=== PATIENT | female | born 1930 | race Caucasian/White ===

== ENCOUNTER 2017-01-09 10:33 | Inpatient (IN) | payer OTHER ==
--- NOTE | 2017-01-09 10:42 | CPEKG ---
Heart Rate: 90 RR Interval: 667 P-R Interval: 140 QRSD Interval: 80 QT Interval: 380 QTC Interval: 465 P [place]: 27 QRS [place]: -30 T Wave [place]: 80 EKG Severity - ABNORMAL ECG - EKG Impression: SINUS RHYTHM EKG Impression: LEFT AXIS DEVIATION EKG Impression: CONSIDER ANTEROSEPTAL INFARCT Electronically Signed By: Myron Unger 09-Jan-2017 12:03:11
[2017-01-09 11:14] LABS: % IMMATURE GRANULYOCYTES 0.3 % (0.0-1.1); ABSOLUTE IMMATURE GRANULOCYTES 0.02 10^3/uL (0.00-0.10); ADD DIFF? NO; ADD MORPH? NO; ADD SCAN? NO; ATYPICAL LYMPHOCYTE FLAG 20 (0-99); FRAGMENT RBC FLAG 0 (0-99); HEMATOCRIT 47.3 % (38.0-47.0); HEMOGLOBIN 16.6 g/dL (12.6-16.3); LEFT SHIFT FLG 0 (0-99); LIPEMIA HEMOLYSIS FLAG 90 (0-99); MEAN CELL HEMOGLOBIN 31.9 pg (27.9-34.1); MEAN CELL HEMOGLOBIN CONCENTR. 35.1 g/dL (32.4-36.7); MEAN CELL VOLUME 90.8 fL (81.5-99.8); MEAN PLATELET VOLUME 10.3 fL (8.7-11.7); PLATELET CLUMPS FLAG 0 (0-99); PLATELET COUNT 201 10^3/uL (150-400); RED BLOOD CELL COUNT 5.21 10^6/uL (4.18-5.33); RED CELL DISTRIBUTION WIDTH 13.1 % (11.5-15.2)
[2017-01-09 11:22] LABS: ANION GAP 11 mEq/L (8-16); CALCIUM 9.6 mg/dL (8.5-10.4); CARBON DIOXIDE 23 mEq/l (22-31); CHLORIDE 96 mEq/L (97-110); CREATININE 0.7 mg/dL (0.6-1.0); GLOMERULAR FILTRATION RATE > 60; GLUCOSE 100 mg/dL (70-100); POTASSIUM 4.4 mEq/L (3.5-5.2); SODIUM 130 mEq/L (134-144)
[2017-01-09 11:38] LABS: INR 2.13 (0.83-1.16)
[2017-01-09] MEDS ORDERED: IOPAMIDOL (ISOVUE 370) 100 ML BTL IV ONE (11:53)
--- NOTE | 2017-01-09 12:57 | EDPHY ---
H & P Time Seen by Provider: 01/09/17 10:59 HPI/ROS: Chief complaint. Chest discomfort HPI. 86-year-old female presents emergency department with chest discomfort. She says she fell last night could not get up. Since this morning she has had fast heart rate. She complains of some anterior chest discomfort but not short of breath. She did not strike her head or lose consciousness. No injury from her fall. She is on Coumadin ROS Constitutional. no fever/chills, no weakness Eyes. no problems with vision ENT. no sore throat, no nasal drainage Cardiovascular. Chest pressure Respiratory. no shortness of breath, no cough Abdominal. no abdominal pain, no nausea/vomiting, no diarrhea . no problems urinating MS. no calf pain/swelling, no neck/back pain, no joint pain Skin. no rash Lymph. no swollen glands Neuro. no headache, no dizziness, no difficulty walking or with speech Past Medical/Surgical History: Past medical history seen for is CVA, hypertension, breast cancer, colon cancer , hypothyroidism, CHF, hysterectomy and appendectomy Social History: , nonsmoker, no alcohol Smoking Status: Never smoked Physical Exam: General Appearance: Alert well-developed female mild distress vital signs are stable Eyes: Pupils equal and round no pallor or injection. ENT, Mouth: Mucous membranes are moist. No bumps to the head. No hemotympanum or Obregon sign. No evidence for trauma Respiratory: There are no retractions, lungs are clear to auscultation. Cardiovascular: Regular rate and rhythm. Gastrointestinal: Abdomen is soft and nontender, no masses, bowel sounds normal. Neurological: Awake and alert, sensory and motor exams grossly normal. Skin: Warm and dry, no rashes. Musculoskeletal: Neck is supple nontender. Extremities symmetrical, full range of motion. Psychiatric: Patient is oriented X 3, there is no agitation. Constitutional: Initial Vital Signs Temperature (C) 36.8 C 01/09/17 10:43 Heart Rate 92 01/09/17 10:43 Respiratory Rate 18 01/09/17 10:43 Blood Pressure 169/104 H 01/09/17 10:43 O2 Sat (%) 96 01/09/17 10:43 O2 Delivery Mode Room Air Allergies/Adverse Reactions: No Known Allergies Allergy (Verified 11/30/14 03:06) Home Medications: Medication Instructions Recorded Ascorbic Acid [Vitamin C 500 mg 1,000 mg PO DAILY 01/31/15 (*)] Benazepril HCl [Lotensin (*)] 10 mg PO BID 01/31/15 Ca/D3/Mag/Zinc/Gonzalo/Jasper/Mgbor 1 each PO DAILY 01/31/15 [Caltrate 600+D3+Min Chew Tab] Docusate Sodium [Colace 100 MG (*)] 100 mg PO BID PRN 01/31/15 Vitamin B Complex [Super B-50 1 each PO DAILY 01/31/15 Complex] Warfarin Sodium [Coumadin 4MG (*)] 4 mg PO SUSA 01/31/15 Warfarin Sodium [Coumadin 4MG (*)] 8 mg PO MOTUWETHFR 01/31/15 cloNIDine HCL [Kapvay] 0.1 - 0.2 mg PO DAILY PRN 01/31/15 cycloSPORINE 0.05% [Restasis Opht 1 drop EACHEYE BID 01/31/15 Drops(*)] Acetaminophen [Tylenol 325mg (*)] 650 mg PO Q4 PRN #0 tab 02/03/15 Levothyroxine 08/29/16 Nexium 08/29/16 amLODIPine BESYLATE 08/29/16 Medical Decision Making - Diagnostics EKG Interpretation: EKG interpreted by me shows normal sinus rhythm with normal interval. There is left axis deviation. QRS is normal there is maybe slight anterior septal elevation but poor R-wave progression. Really no significant ST elevation or depression. No arrhythmia. The rate is 90 Imaging: Imaging Impressions Chest X-Ray 01/09/17 11:09 Impression: Early/impending CHF. Chest/Thorax CTA 01/09/17 11:45 Impression: 1. No evidence for pulmonary embolus. 2. Multiple 3 to 4 mm pulmonary noncalcified nodules bilaterally at the periphery. There is also nodular pleural thickening of the right minor fissure of 8-9 mm. This most likely benign. Consider follow-up CT in one year as clinically indicated. 3. Evidence of atherosclerotic disease in the coronary arteries. Evidence of atherosclerotic disease in the thoracic aorta with no evidence of aneurysmal dilatation or dissection. 4. Mild underlying bronchitis, likely chronic. 5. Moderate chronic anterior wedge compression deformity of T12. Results called and discussed with Myron Unger at 1240 hours 09 January 2017. Procedures: IV normal saline., monitor ED Course/Re-evaluation: Patient's D-dimer is elevated despite being on Coumadin. She has a chest CT which is negative for pulmonary embolus. Patient's troponin is elevated. The patient and I discussed recommendation for admission and further evaluation. She expresses understanding and agreement I consulted and discussed the case with Dr. Collazo, hospitalist, who agrees to the admission Differential Diagnosis: I considered pulmonary embolus, acute coronary syndrome, new - Data Points Laboratory Results: Laboratory Results 01/09/17 10:46 01/09/17 10:46 01/09/17 01/09/17 01/09/17 10:46 10:46 10:46 WBC 7.56 10^3/uL 10^3/uL (3.80-9.50) RBC 5.21 10^6/uL 10^6/uL (4.18-5.33) Hgb 16.6 g/dL H g/dL (12.6-16.3) Hct 47.3 % H % (38.0-47.0) MCV 90.8 fL fL (81.5-99.8) MCH 31.9 pg pg (27.9-34.1) MCHC 35.1 g/dL g/dL (32.4-36.7) RDW 13.1 % % (11.5-15.2) Plt Count 201 10^3/uL 10^3/uL (150-400) MPV 10.3 fL fL (8.7-11.7) Neut % (Auto) 71.1 % % (39.3-74.2) Lymph % (Auto) 15.5 % % (15.0-45.0) [place] % (Auto) 11.9 % % (4.5-13.0) Eos % (Auto) 0.9 % % (0.6-7.6) Baso % (Auto) 0.3 % % (0.3-1.7) Nucleat RBC Rel Count 0.0 % % (0.0-0.2) Absolute Neuts (auto) 5.38 10^3/uL 10^3/uL (1.70-6.50) Absolute Lymphs (auto) 1.17 10^3/uL 10^3/uL (1.00-3.00) Absolute Monos (auto) 0.90 10^3/uL H 10^3/uL (0.30-0.80) Absolute Eos (auto) 0.07 10^3/uL 10^3/uL (0.03-0.40) Absolute Basos (auto) 0.02 10^3/uL 10^3/uL (0.02-0.10) Absolute Nucleated RBC 0.00 10^3/uL 10^3/uL (0-0.01) Immature Gran % 0.3 % % (0.0-1.1) Immature Gran # 0.02 10^3/uL 10^3/uL (0.00-0.10) PT 24.0 SEC H SEC (12.0-15.0) INR 2.13 H (0.83-1.16) D-Dimer 1.43 ug/mLFEU H ug/mLFEU (0.00-0.50) Sodium 130 mEq/L L mEq/L (134-144) Potassium 4.4 mEq/L mEq/L (3.5-5.2) Chloride 96 mEq/L L mEq/L (97-110) Carbon Dioxide 23 mEq/l mEq/l (22-31) Anion Gap 11 mEq/L mEq/L (8-16) BUN 16 mg/dL mg/dL (7-23) Creatinine 0.7 mg/dL mg/dL (0.6-1.0) Estimated GFR > 60 Glucose 100 mg/dL mg/dL (70-100) Calcium 9.6 mg/dL mg/dL (8.5-10.4) Troponin I 1.050 ng/mL H ng/mL (0-0.034) NT-Pro-B Natriuret Pep 3400 pg/mL H pg/mL (0-450) Departure - Departure Disposition: [facility] Inpatient Acute Clinical Impression: Non-STEMI (non-ST elevated myocardial infarction) Condition: Fair Referrals: UNKNOWN,UNKNOWN [Other] - As per Instructions
[2017-01-09] MEDS ORDERED: ASPIRIN 81 MG CHEWABLE TAB PO ONE (13:04)
--- NOTE | 2017-01-09 13:34 | CPEKG ---
Heart Rate: 91 RR Interval: 659 P-R Interval: 144 QRSD Interval: 82 QT Interval: 372 QTC Interval: 458 P [place]: 13 QRS [place]: -37 T Wave [place]: 74 EKG Severity - ABNORMAL ECG - EKG Impression: SINUS RHYTHM EKG Impression: LEFT AXIS DEVIATION EKG Impression: ANTERIOR INFARCT, AGE INDETERMINATE Electronically Signed By: Myron Unger 09-Jan-2017 15:31:23
[2017-01-09] MEDS ORDERED: ONDANSETRON DISINTEGRATING 4 MG TAB PO PRN (13:48)
[2017-01-09] MEDS ORDERED: ONDANSETRON 4 MG/2 ML VIAL IVP PRN (13:48)
[2017-01-09] MEDS ORDERED: ACETAMINOPHEN 325 MG TAB PO PRN (13:48)
[2017-01-09] MEDS ORDERED: hydrALAZINE 10 MG TAB PO PRN (13:52)
[2017-01-09] MEDS ORDERED: PROPYLENE GLYCOL EACHEYE PRN (14:38)
[2017-01-09] MEDS ORDERED: PEG EACHEYE PRN (14:38)
--- NOTE | 2017-01-09 15:21 | ECHO ---
[id number] + + [address] : : [place] [address] : : [phone] + + Adult Echocardiographic Report + ----+ :Name: JERAD PALOMINOTeri Date: 01/09/2017 02:50 PM : : Hospital Admission Number: [id number] Location : ER: :: 1930 Gender: Female : :Age: 86 yrs Race: WH : :Reason For Study: NSTEMI : + ----+ MMode/2D Measurements \T\ Calculations IVSd: 0.92 cm LVIDd: 4.2 cm FS: 22.3 % MV Diam: 4.0 cm LVPWd: 1.0 cm LVIDs: 3.2 cm EDV(Teich): 77.3 ml ESV(Teich): 42.2 ml EF(Teich): 45.4 % LA dimension: LVOT diam: 1.9 cmLVLd ap4: 8.2 cm SV(MOD-sp4): 4.3 cm LVOT area: EDV(MOD-sp4): 24.0 ml 47.0 ml 2.8 cm2 LVLs ap4: 7.2 cm ESV(MOD-sp4): 23.0 ml EF(MOD-sp4): 51.1 % Normal Measurement Values: + + :LVIDd (3.5-5.7cm) IVSd (0.6-1.1cm) LVPWd (0.6-1.1cm) Aortic Root (2.0-3.7cm)Left Atrium (1.5-4.0cm): :LV Vol(d) (76-115ml) LV Vol(s) (29-48ml) Ejec Fraction (50-65%)PV Juan Carlos (0.6- 1.2m/s) TV Juan Carlos (0.4-1.0m/s) : :MV E Juan Carlos (0.8-1.0m/s)MV A Juan Carlos (0.3-1.0m/s)LVOT Juan Carlos (0.7-1.2m/s) Asc Ao Juan Carlos ( 0.9-1.8m/s) : + + Doppler Measurements \T\ Calculations MV V2 max: Ao V2 max: LV V1 max: MR max juan carlos: 108.0 cm/sec 353.0 cm/sec 100.0 cm/sec 570.0 cm/sec MV max P.7 mmHg Ao max PG: LV V1 max PG: MR max PG: MV V2 mean: 49.9 mmHg 4.0 mmHg 130.0 mmHg 68.1 cm/sec Ao mean PG: LV V1 mean PG: MV mean P.0 mmHg 28.5 mmHg 3.0 mmHg MV V2 VTI: 22.7 cm Ao V2 mean: LV V1 mean: MV area (1 diam): 244.5 cm/sec 78.4 cm/sec 12.6 cm2 Ao V2 VTI: 73.8 cmLV V1 VTI: 22.6 cm MVA(VTI): 2.8 cm2 ALYSSIA(I,D): 0.87 cm2 MV Flow area(1diam): ALYSSIA(V,D): 0.80 cm2 12.6 cm2 MR(RF 1 diam): SV(MV 1 diam): TR max juan carlos: RF(MV,LVOT) 10.8 % 285.3 ml 335.0 cm/sec (1diam): 0.78 SV(LVOT): 64.1 ml TR max P.9 mmHg RAP systole: 10.0 mmHg RVSP(TR): 54.9 mmHg Left Ventricle The left ventricle is normal in size. There is normal left ventricular wall thickness. Ejection Fraction = 55-60%. There are regional wall motion abnormalities as specified. Right Ventricle The right ventricle is normal in size and function. Atria The left atrium is mild to moderately dilated. Right atrial size is normal. The interatrial septum is intact with no evidence for an atrial septal defect. Mitral Valve Calcified mitral apparatus. There is no evidence of mitral valve prolapse. There is no mitral valve stenosis. There is moderate to severe mitral regurgitation. Tricuspid Valve Normal tricuspid valve. There is mild tricuspid regurgitation. Right ventricular systolic pressure is 55mmHg. There is Doppler evidence for mild pulmonary hypertension. Aortic Valve Moderate to severe AO calcification. Moderate to severe valvular aortic stenosis. AV max PG is 53mmHG. AV mean PG is 30mmHG. There is no aortic insufficiency. Pulmonic Valve The pulmonic valve is normal in structure and function. There is no pulmonic valvular regurgitation. Great Vessels The aortic root is normal size. Pericardium/Pleural There is no pericardial effusion. Conclusion A complete two-dimensional transthoracic echocardiogram was performed (2D, M-mode, Doppler and color flow Doppler). Ejection Fraction = 55-60%. The left atrium is mild to moderately dilated. Calcified mitral apparatus. There is moderate to severe mitral regurgitation. There is mild tricuspid regurgitation. Right ventricular systolic pressure is 55mmHg. There is Doppler evidence for mild pulmonary hypertension. Moderate to severe AO calcification. Moderate to severe valvular aortic stenosis. AV max PG is 53mmHG. AV mean PG is 30mmHG. Final Reading Physician: Sigrid Rao signed on 01/09/2017 03:19 PM Ordering Physician: Laurie Alonzo Performed By: Sarah Brooke RDCS
[2017-01-09] MEDS ORDERED: hydrALAZINE 20 MG/ML VIAL IVP PRN (15:27)
--- NOTE | 2017-01-09 15:38 | GHP ---
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 The patient says she was walking from the kitchen to her bedroom with 2 yogurts in her hand and then fell on her back because she was not using her walker. She denied any prodromal chest pain, shortness of breath, dizziness, lightheadedness, nausea or vomiting. She was unable to get up off the floor, thus called the EMS and was brought to the emergency room. After the fall, she stated she had a heavy, fast heart beat without radiation. She did not have any associated symptoms with this. She said this was the first time she has had this symptom. She denies headache. Upon my visit now, she states that she is still feeling that heavy heart beat. Patient lives alone. Her son is in the [facility]. REVIEW OF SYSTEMS: I have completed a 10-point review of systems. PAST MEDICAL HISTORY: 1. Stroke with residual severe carotid stenosis on chronic Coumadin. 2. Breast cancer. 3. History of colon cancer. 4. Hypertension. 5. Atrial fibrillation. 6. Esophageal stenosis. 7. Hyponatremia. 8. Hypothyroidism. 9. Spinal stenosis. PAST SURGICAL HISTORY: 1. Right mastectomy. 2. Hysterectomy. ALLERGIES: No known drug allergies. SOCIAL HISTORY: Lives alone. Denies alcohol, tobacco, or illicits. Her son is her MDPOA. She is a DNR. MEDICATIONS: 1. Coumadin 10 mg daily. 2. Systane eyedrops. 3. Flonase b.i.d. 4. Colace b.i.d. 5. Aspirin 325 mg daily. 6. Milk of mag p.r.n. 7. Lipitor 10 mg. 8. Levothyroxine 50 mcg. 9. Cyclosporin 1 drop b.i.d. 10. Clonidine 0.1 to 0.2 mg p.o. daily p.r.n. 11. Multivitamin. 12. Benazepril 10 twice daily. 13. Amlodipine 5 mg daily. PHYSICAL EXAMINATION: VITAL SIGNS: Blood pressure 169/104, heart rate 90s, temperature 36.8, respiration 18, 96% on room air. GENERAL: Patient is lying in bed, in no acute distress. HEENT: Hard of hearing. PERRLA. CV: Regular rate and rhythm with occasional extra beats. Soft systolic murmur. LUNGS: Clear to auscultation bilaterally. ABDOMEN: Soft, nontender, nondistended. Positive bowel sounds. : No Vance. No suprapubic tenderness. MUSCULOSKELETAL: Moving all 4 extremities. NEURO: 2 through 12 intact. PSYCH : Alert, slow to answer questions but does so appropriately. LABORATORY DATA: WBC 7, hemoglobin 16, hematocrit 47, platelets 201. INR is 2.1, PT is 24. D-dimer is 1.43. Sodium 130, potassium 4.4, chloride 96, carbon dioxide 23, BUN is 16, creatinine 0.7, glucose 100. Troponin 1.050. BNP is 3400. Chest x-ray personally reviewed by me, mild interstitial edema. EKG is personally reviewed by me. First EKG at 10:[address] depression in anterior leads. Repeat at 1330, reviewed by me, now with progressive ischemic changes of T-wave inversions in leads V2 through V4. ASSESSMENT AND PLAN: 1. Acute non-ST segment elevation myocardial infarction: Evidence of ischemia on EKG with an elevated troponin. I discussed the case with Dr. Grimes with cardiology and patient's son who is her MDPOA. Echo did not reveal wall motion abnormalities, rather severe . This is likely cause of elevated trop and EKG changes. Will check serial troponins and admit to PCU with telemetry. Cont home ASA, statin. I have discussed this plan with her son, Kai, who is MDPOA. 2. Severe : may warrant valve replacement. Caution with diuretics and IVFs as preload-dependent. 3. History of cerebrovascular accident with severe carotid stenosis: cont ASA, Coumadin. 4. Accelerated hypertension: Norvasc and PRN hydralazine 5. Mild volume overload: start low-dose Chlorthalidone tomorrow 6. Hypothyroidism. Continue levothyroxine. 7. History of colon cancer, status post resection. 8. History of breast cancer, status post mastectomy. 9.. Left hip pain: due to fall. c/o pain to me in ER. Check plain 10. [facility] fall: was not using walker at time of fall. PT/O 11. Diet: cardiac 12. DVT ppx: on coumadin Goals: I have spoken with her son, Kai, at length about her clinical disposition. He is flying here from [facility].He is MDPOA DNR Disposition: The patient warrants inpatient admission given acute non-ST segment elevation myocardial infarction warranting further cardiac evaluation. /[id number]/MODL MTDD
[2017-01-09] MEDS ORDERED: TEARS/DEXTRAN 70/HYPROMELLOSE 15 ML OPHT.BTL EACHEYE PRN (15:59)
[2017-01-09] MEDS ORDERED: WARFARIN SODIUM 5 MG TAB PO SCH (16:00)
[2017-01-09] MEDS ORDERED: HEPARIN/DEXTROSE 500 ML IV SCH (16:30)
[2017-01-09] MEDS: amLODIPine BESYLATE 5 MG TAB PO SCH (16:55)
--- NOTE | 2017-01-09 17:04 | GHP ---
[f rep st] HISTORY AND PHYSICAL DATE OF ADMISSION: 01/09/2017 CHIEF COMPLAINT: The patient had a fall with abnormal EKG and troponin. HISTORY OF PRESENT ILLNESS: This is an 86-year-old female who has no known history of coronary jack ry disease. She is somewhat hard of hearing, and her history is taken from herself and reading the chart. She apparently had a CVA with residual severe carotid stenosis. She is on chronic anticoagu lation. Last evening, apparently she was holding 2 yogurts and had a fall without any prodrome. To day, because of a pounding heart rate, she came to the emergency room, where her EKG showed nonspeci fic changes in V1 and V2. Troponin is 1.0. She denies any chest pain or other known coronary arter y disease. There is a mention of a history of atrial fibrillation, but no atrial fibrillation is kn own at this time. She is on Coumadin and, otherwise, now is seen resting comfortably. An echocardi ogram showed probable severe aortic stenosis with a valve area 0.7, moderate to severe mitral regurg itation, normal LV function without ischemic wall motion abnormality with mild concentric LVH. Appa rently, she takes her home pulse and blood pressures on a regular basis. Her son is in [facility], who has power of transactional attorney. At this point, she is resting comfortably. We will continue to control her hypertension tonight and we will place her on heparin drip. Discussions of further care will need to be made when her son is available regarding her cardiac status and whether or not she would be a candidate for surgical or transarterial valve replacement. We will also monitor for any arrhythmias , although it is normal sinus at this time. I tried to explain this to her, but we will need to exp freddy more fully when her son is here. REVIEW OF SYSTEMS: Apparently no GI or complaints. No shortness of breath. No PND or orthopnea . She lives at home and other than her fall, has been very stable. She has had falls in the past. PAST MEDICAL HISTORY: Past history includes stroke with severe carotid stenosis, on chronic Coumadi n. She has history of colon cancer, hypertension, atrial fibrillation, esophageal stenosis, spinal stenosis. ALLERGIES: No known drug allergies. SOCIAL HISTORY: She lives alone. Her son has medical power of transactional attorney. She is DNR. MEDICATIONS: At this time include Coumadin, Norvasc, p.r.n. clonidine, benazepril/hydrochlorothiazi de and Lipitor. PHYSICAL EXAMINATION: VITAL SIGNS: Blood pressure is elevated at 160/100. Heart rate is in the 90 s in sinus. GENERAL: She is hard of hearing, but seems to be alert and oriented. HEENT: She has some mild post stroke changes on her right face. Mouth and oropharynx moist. LUNGS: Clear. CARDI OVASCULAR: Regular rate and rhythm with a systolic murmur. Carotid bruit on the left side. ABDOME N: Soft, nontender. MUSCULOSKELETAL: No edema. Decreased pedal pulses. ASSESSMENT: 1. Fall, probably multifactorial. At this point, the patient has hypertension and has not been hav ing ongoing acute coronary syndrome symptomatology. She has complained of a pounding heart rate, al though her rate is 90, usually at 70. I suspect this is probably from her home medicine of clonidin e and amlodipine. At this point, echocardiogram did not show any ischemic wall motion abnormalities . For now, the big question is further workup of her valvular heart disease. I would like to hold her Coumadin and begin her on heparin. She has had at least 2 falls now in the last few months, whi ch once again would make coumadinization somewhat more risky, although she feels comfortable with th e drug that she is taking at this time. 2. Hypertension. It is, I suspect, under better control, but she seems to be more fixated on her h eart rate than blood pressure. 3. History of peripheral vascular disease, status post cerebrovascular accident and apparently resi dual carotid stenosis, although I did not find any reports of the specific stenotic gradient. 4. Possible arrhythmias. We will continue to monitor. 5. We will need to discuss more fully with her son and her, her wishes as to further workup. She i s DNR. Once again, she is now comfortable, stable, without ongoing symptomatology. Case is discuss ed with Dr. Alonzo. /[id number]/MODL
[2017-01-09] MEDS: ATORVASTATIN CALCIUM 10 MG TAB PO SCH (18:00)
[2017-01-09] MEDS: DOCUSATE SODIUM 100 MG CAP PO SCH (18:00)
[2017-01-09] MEDS: CALCIUM CARB W/VIT D 500 MG TAB PO SCH (18:30)
[2017-01-09] MEDS: CYCLOSPORINE 0.05% 1 EACH BOX EACHEYE SCH (20:44)
[2017-01-09] MEDS: FLUTICASONE NASAL 120 SPRAYS/16 GM MDI EACHNARE SCH (20:44)
[2017-01-09] MEDS: diphenhydrAMINE 25 MG CAP PO SCH (21:51)
[2017-01-10 04:07] LABS: INR 2.45 (0.83-1.16); PROTIME(PATIENT) 26.8 SEC (12.0-15.0)
[2017-01-10] MEDS: LEVOTHYROXINE 50 MCG TAB PO SCH (08:37)
[2017-01-10] MEDS: CHLORTHALIDONE 25 MG TAB PO SCH (08:38)
[2017-01-10] MEDS: DOCUSATE SODIUM 100 MG CAP PO SCH ×2 (08:38→18:00)
[2017-01-10] MEDS: PANTOPRAZOLE SODIUM 40 MG TAB PO SCH (08:39)
[2017-01-10] MEDS: ASPIRIN 325 MG TAB PO SCH (08:39)
[2017-01-10] MEDS: MULTIVITAMINS 1 EACH TAB PO SCH (08:39)
[2017-01-10] MEDS: CYCLOSPORINE 0.05% 1 EACH BOX EACHEYE SCH ×2 (08:40→20:42)
[2017-01-10] MEDS: amLODIPine BESYLATE 5 MG TAB PO SCH (08:40)
[2017-01-10] MEDS: FLUTICASONE NASAL 120 SPRAYS/16 GM MDI EACHNARE SCH ×2 (08:42→20:43)
[2017-01-10] MEDS: CALCIUM CARB W/VIT D 500 MG TAB PO SCH (08:45)
[2017-01-10] MEDS ORDERED: NON-FORMULARY NEW DRUG (Esomeprazole Mag Trihydrate [Nexium] 40 MG) PO SCH (09:00)
[2017-01-10] MEDS ORDERED: [UNRECOGNIZED DRUG - OTHER] PO SCH (09:00)
[2017-01-10] MEDS ORDERED: amLODIPine BESYLATE 5 MG TAB PO SCH (09:00)
--- NOTE | 2017-01-10 09:03 | SOAPPROG ---
KATIE Progress Note Assessment/Plan: Assessment: 1. vhd...mod/severe and MR..normal lvef withut rwma..no signifcant s/s of chf..pt son coming in to [facility]..need to discuss options..pt "wants to go home" without further testing at this point 2. htn..well controlled on current meds 3. abn trop..? cad or chf?vhd...no unstable cad symptoms now..pt not wanting "tests" Plan:1. continue med management and await son's return to further discuss options and plans 01/10/17 09:03 01/10/17 09:04 Subjective: pt feeling well without c/o Objective: Vital Signs Temp Pulse Resp BP Pulse Ox 36.8 C 69 17 100/81 H 96 01/10/17 08:00 01/10/17 08:00 01/10/17 08:00 01/10/17 08:00 01/10/17 08:00 01/09/17 01/10/17 01/11/17 05:59 05:59 05:59 Intake Total 506 Balance 506 PT 26.8 SEC (12.0-15.0) H 01/10/17 03:10 INR 2.45 (0.83-1.16) H 01/10/17 03:10 Physical Exam - Physical Exam Respiratory: lungs clear Cardiac/Chest: normal peripheral pulses, regular rate, rhythm, systolic murmur, No edema, No gallop ICD10 Worksheet Patient Problems: Problems Problem Status Onset Non-STEMI (non-ST elevated myocardial infarction) Acute Fall Acute Wrist fracture, left Acute
--- NOTE | 2017-01-10 13:41 | HOSPPROG ---
Hospitalist Progress Note Assessment/Plan: * severe aortic stenosis * awaiting son's arrival tomorrow to make any decisions. * Probably more likely a TAVR candidate * syncope * probably related to stenosis * elevated troponin * more likely related to severe aortic stenosis than active coronary disease * since she is already on Coumadin will discontinue heparin * atrial fibrillation * in sinus * history of severe carotid stenosis with stroke * Coumadin * Subjective: no new complaints. No chest pain or shortness of breath. Is able to ambulate Objective: Vital Signs Temp Pulse Resp BP Pulse Ox 36.8 C 69 17 100/81 H 96 01/10/17 08:00 01/10/17 08:00 01/10/17 08:00 01/10/17 08:00 01/10/17 08:00 01/09/17 01/10/17 01/11/17 05:59 05:59 05:59 Intake Total 506 Balance 506 PT 26.8 SEC (12.0-15.0) H 01/10/17 03:10 INR 2.45 (0.83-1.16) H 01/10/17 03:10 discussed with Cardiology tele personally viewed interpreted normal sinus rhythm ICD10 Worksheet Patient Problems: Problems Problem Status Onset Non-STEMI (non-ST elevated myocardial infarction) Acute Fall Acute Wrist fracture, left Acute
[2017-01-10] MEDS: ATORVASTATIN CALCIUM 10 MG TAB PO SCH (18:00)
[2017-01-10] MEDS: diphenhydrAMINE 25 MG CAP PO SCH (20:43)
[2017-01-11 04:54] LABS: % IMMATURE GRANULYOCYTES 0.2 % (0.0-1.1); ABSOLUTE IMMATURE GRANULOCYTES 0.01 10^3/uL (0.00-0.10); ADD DIFF? NO; ADD MORPH? NO; ADD SCAN? NO; ATYPICAL LYMPHOCYTE FLAG 0 (0-99); FRAGMENT RBC FLAG 0 (0-99); HEMATOCRIT 37.5 % (38.0-47.0); HEMOGLOBIN 12.9 g/dL (12.6-16.3); LEFT SHIFT FLG 0 (0-99); LIPEMIA HEMOLYSIS FLAG 90 (0-99); MEAN CELL HEMOGLOBIN 31.5 pg (27.9-34.1); MEAN CELL HEMOGLOBIN CONCENTR. 34.4 g/dL (32.4-36.7); MEAN CELL VOLUME 91.7 fL (81.5-99.8); MEAN PLATELET VOLUME 10.3 fL (8.7-11.7); PLATELET CLUMPS FLAG 0 (0-99); PLATELET COUNT 143 10^3/uL (150-400); RED BLOOD CELL COUNT 4.09 10^6/uL (4.18-5.33); RED CELL DISTRIBUTION WIDTH 13.2 % (11.5-15.2)
[2017-01-11 05:03] LABS: INR 1.71 (0.83-1.16); PROTIME(PATIENT) 20.1 SEC (12.0-15.0)
[2017-01-11] MEDS: LEVOTHYROXINE 50 MCG TAB PO SCH (05:03)
[2017-01-11 05:22] LABS: ANION GAP 4 mEq/L (8-16); CALCIUM 8.3 mg/dL (8.5-10.4); CARBON DIOXIDE 24 mEq/l (22-31); CHLORIDE 99 mEq/L (97-110); CREATININE 0.6 mg/dL (0.6-1.0); GLOMERULAR FILTRATION RATE > 60; GLUCOSE 83 mg/dL (70-100); POTASSIUM 4.4 mEq/L (3.5-5.2); SODIUM 127 mEq/L (134-144)
[2017-01-11 07:38] VITALS: TEMP 98.2
[2017-01-11] MEDS: FLUTICASONE NASAL 120 SPRAYS/16 GM MDI EACHNARE SCH (07:57)
[2017-01-11] MEDS: DOCUSATE SODIUM 100 MG CAP PO SCH (07:57)
[2017-01-11] MEDS: CALCIUM CARB W/VIT D 500 MG TAB PO SCH (07:57)
[2017-01-11] MEDS: CYCLOSPORINE 0.05% 1 EACH BOX EACHEYE SCH (07:57)
[2017-01-11] MEDS: CHLORTHALIDONE 25 MG TAB PO SCH (08:00)
[2017-01-11] MEDS: ASPIRIN 325 MG TAB PO SCH (08:00)
[2017-01-11] MEDS: PANTOPRAZOLE SODIUM 40 MG TAB PO SCH (08:00)
[2017-01-11] MEDS: MULTIVITAMINS 1 EACH TAB PO SCH (08:00)
[2017-01-11] MEDS: amLODIPine BESYLATE 5 MG TAB PO SCH (08:00)
--- NOTE | 2017-01-11 10:04 | SOAPPROG ---
KATIE Progress Note Assessment/Plan: Assessment: 1. vhd...mod/severe and MR..normal lvef withut rwma..no signifcant s/s of chf..had family meetring with son and pt..pt "wants to go home" without further testing at this point 2. htn..well controlled on current meds 3. abn trop..? cad or chf?vhd...no unstable cad symptoms now..pt not wanting "tests" Plan:1. continue med management and can be d/c sd home on current htn meds from my standpoint 01/10/17 09:03 01/10/17 09:04 01/11/17 10:04 Subjective: spoke to pt and son..reviewed her situatioin ..outlined aggressive vs non aggressive strategies..she "wants to go home " ..no further testing at this time and if she changes her mind we can proceed as an out pt..would d/c home on current cardiac meds Objective: Vital Signs Temp Pulse Resp BP Pulse Ox 36.8 C 78 17 143/90 H 96 01/11/17 07:38 01/11/17 07:38 01/11/17 07:38 01/11/17 07:38 01/11/17 07:38 Laboratory Results 01/11/17 04:40 01/11/17 04:40 01/10/17 01/11/17 01/12/17 05:59 05:59 05:59 Intake Total 506 100 Balance 506 100 PT 20.1 SEC (12.0-15.0) H 01/11/17 04:40 INR 1.71 (0.83-1.16) H 01/11/17 04:40 ICD10 Worksheet Patient Problems: Problems Problem Status Onset Non-STEMI (non-ST elevated myocardial infarction) Acute Fall Acute Wrist fracture, left Acute
--- NOTE | 2017-01-11 11:12 | PDIAF ---
- Diagnosis Diagnosis: aortic stenosis Code Status: Do Not Resuscitate - Medication Management Discharge Medications: Medications to Continue on Transfer Ca/D3/Mag/Zinc/Gonzalo/Jasper/Mgbor [Caltrate 600+D3+Min Chew Tab] 1 each PO DAILY [Last Taken Unknown] cycloSPORINE 0.05% [Restasis Opht Drops(*)] 1 drop EACHEYE BID 01/31/15 [Last Taken Unknown] Esomeprazole Mag Trihydrate [Nexium] 40 mg PO DAILY 08/29/16 [Last Taken Unknown ] Levothyroxine [Synthroid 50 mcg (*)] 50 mcg PO DAILY06 08/29/16 [Last Taken Unknown] amLODIPine BESYLATE [Norvasc 5 mg (*)] 5 mg PO DAILY 08/29/16 [Last Taken Unknown] Aspirin [Aspirin 325 mg (*)] 325 mg PO DAILY 01/09/17 [Last Taken Unknown] Atorvastatin Calcium [Lipitor 10 mg (*)] 10 mg PO HS 01/09/17 [Last Taken Unknown] Docusate Sodium [Colace 100 MG (*)] 100 mg PO BID 01/09/17 [Last Taken Unknown] Fluticasone Nasal [Flonase Nasal [place]] 1 sprays NASAL BID 01/09/17 [Last Taken Unknown] Magnesium Hydroxide [Milk of Magnesia] 30 ml PO DAILY PRN 01/09/17 [Last Taken Unknown] Multivitamins [Multivitamin (*)] 1 each PO DAILY 01/09/17 [Last Taken Unknown] Propylene Glycol/Peg 400 [SYSTANE 0.3-0.4% EYE DROPS] 2 drops EACHEYE DAILY PRN 01/09/17 [Last Taken Unknown] Warfarin Sodium [Coumadin 5MG (*)] 10 mg PO DAILY16 01/09/17 [Last Taken Unknown ] amLODIPine BESYLATE [Norvasc 10 mg (*)] 10 mg PO DAILY #30 tab 01/11/17 [Last Taken Unknown] clonIDINE [Catapres (*)] 0.1 mg PO BID #60 tab 01/11/17 [Last Taken Unknown] Discharge Medications: Refer to the Discharge Home Medication list for PRN reason. - Orders Services needed: Home Care, Physical Therapy, Occupational Therapy Home Care Face to Face: I certify that this patient was under my care and that I had the required [id number] encounter meeting the encounter requirements on the discharge day. My findings support the fact that the patient is homebound as defined in CMS Chapter 7 Medicare Benefits Manual 30.1.1, The condition of the patient is such that there exists a normal inability to leave home and consequently, leaving home would require a considerable and taxing effort. - Follow Up Care Current Providers and Referrals: UNKNOWN,UNKNOWN [Other] - As per Instructions Jean Grimes MD [Medical Doctor] -
[2017-01-11 12:58] VITALS: BP 101/68; PULSE 77; RESP 18; O2SAT 94
--- NOTE | 2017-01-11 13:04 | GDS ---
[f rep st] DISCHARGE SUMMARY DISCHARGE DIAGNOSIS: 1. Syncope probably related to severe aortic stenosis. 2. Severe aortic stenosis. 3. Elevated troponin most likely related to her aortic stenosis. 4. Atrial fibrillation. 5. History of cerebrovascular accident with severe carotid stenosis. HISTORY: This is an 86-year-old female who presented with a syncopal episode. HOSPITAL COURSE: The patient was admitted and had an initial troponin that was elevated at over 1. This slowly came down. Cardiology was consulted after echocardiogram showed moderate to severe aor tic stenosis along with mild to severe mitral regurgitation. Medication changes were made in terms of discontinuing Lotensin and increasing Norvasc and scheduling her clonidine rather than keeping it p.r.n. Her blood pressures remained stable. She is back to baseline. She is not having any dizzi ness or chest pain. DISPOSITION: She will be discharged home to follow up with Cardiology for possible TAVR procedure. TIME SPENT: Greater than 30 minutes were spent on discharge. /[id number]/MODL
== END 2017-01-11 12:40 | disposition home health service (06) | DRG 307 ==
LOC: EDUNIT# → OBSVTOIN 13:48 → F2W 15:46
PROVIDERS: ADMIT Internal Medicine; ATTEND Internal Medicine
PROC: 02HV33Z Insertion of Infusion Device into Superior Vena Cava, Percutaneous Approach (ICD-10-PCS; principal; 2017-01-09)
DX: I35.0 Nonrheumatic aortic (valve) stenosis (principal); I65.29 Occlusion and stenosis of unspecified carotid artery; Z86.73 Personal history of transient ischemic attack (TIA), and cerebral infarction without residual deficits; I10 Essential (primary) hypertension; I48.91 Unspecified atrial fibrillation; E03.9 Hypothyroidism, unspecified; Z66 Do not resuscitate; Z85.038 Personal history of other malignant neoplasm of large intestine; Z85.3 Personal history of malignant neoplasm of breast; Z79.01 Long term (current) use of anticoagulants
CPT/HCPCS: 85520-90; 97116-GP; 97162-GP; 97165-GO; C1751; G8978-GP-CK; G8979-GP-CK; G8980-GP-CK; G8987-GO-CL; G8988-GO-CJ; J1644; Q9967

== ENCOUNTER 2017-01-29 03:51 | Emergency (ER) | payer OTHER ==
[2017-01-29 04:06] VITALS: TEMP 97.7
--- NOTE | 2017-01-29 04:07 | EDPHY ---
H & P Time Seen by Provider: 01/29/17 03:52 HPI/ROS: HPI The patient presents with shortness of breath, brought in by paramedics. Tonight, she had a fall when getting out of bed. She normally uses a walker and was moving from her bed to a chair when she fell to the ground. She tried to get up for about 2 hours but says she was unable to. During this time she got short of breath. She pressed her Life Alert button and paramedics came to her house. There, they noticed that she had coarse breath sounds and encouraged her to come to the hospital. The patient agreed. She says she is feeling slightly short of breath currently. She denies any chest pain or any other aches or pains in her body. She was recently admitted after a fall and was found to have severe aortic stenosis. She was seen by Cardiology. She ultimately decided that she did not want any interventions for her valvular disease, except for medication management. She has a MOST form with her stating she is DNR and prefers limited interventions. REVIEW OF SYSTEMS Constitutional: No fever, no chills. Eyes: No discharge. ENT: No sore throat. Cardiovascular: No chest pain, no palpitations. Respiratory: No cough, positive for shortness of breath. Gastrointestinal: No abdominal pain, no vomiting. Genitourinary: No hematuria. Musculoskeletal: No back pain. Skin: No rashes. Neurological: No headache. PMHx: Severe aortic stenosis, atrial fibrillation on Coumadin with history of CVA with residual carotid stenosis Soc Hx: Lives at home alone, though has daily home health aide of some sort PHYSICAL General Appearance: Alert, no distress Eyes: Pupils equal and round no pallor or injection ENT, Mouth: Mucous membranes moist Respiratory: The patient is speaking full sentences, there are no retractions, there are diffuse coarse breath sounds throughout all lung cullen Cardiovascular: Holosystolic murmur Gastrointestinal: Abdomen is soft and non-tender, no masses, bowel sounds normal Neurological: A&O, moves all extremities Skin: Warm and dry, no rashes Musculoskeletal: Neck is supple non tender Extremities: symmetrical, full range of motion Psychiatric: Patient is oriented X 3, there is no agitation Source: Patient, EMS - Personal History Current Tetanus/Diphtheria Vaccine: Yes Current Tetanus Diphtheria and Acellular Pertussis (TDAP): Yes Tetanus Vaccine Date: 2011 - Medical/Surgical History Hx Asthma: No Hx Chronic Respiratory Disease: No Hx Diabetes: No Hx Cardiac Disease: Yes Hx Renal Disease: No Hx Cirrhosis: No Hx Alcoholism: No Hx HIV/AIDS: No Hx Splenectomy or Spleen Trauma: No Other PMH: Stroke in 2004, HTN, Breast Ca. Colon Ca. HYPOTHYROIDISM, poss CHF, mesecomy, hyst. APPY - Social History Smoking Status: Never smoked Constitutional: Initial Vital Signs Temperature (C) 36.5 C 01/29/17 04:00 Heart Rate 104 H 01/29/17 04:00 Respiratory Rate 24 H 01/29/17 04:00 Blood Pressure 194/117 H 01/29/17 04:00 O2 Sat (%) 93 01/29/17 04:00 O2 Delivery Mode Room Air Allergies/Adverse Reactions: No Known Allergies Allergy (Verified 11/30/14 03:06) Home Medications: Medication Instructions Recorded Ca/D3/Mag/Zinc/Gonzalo/Jasper/Mgbor 1 each PO DAILY 01/31/15 [Caltrate 600+D3+Min Chew Tab] Esomeprazole Mag Trihydrate 40 mg PO DAILY 08/29/16 [Nexium] Levothyroxine [Synthroid 50 mcg 50 mcg PO DAILY06 08/29/16 (*)] amLODIPine BESYLATE [Norvasc 5 mg 5 mg PO DAILY 08/29/16 (*)] Aspirin [Aspirin 325 mg (*)] 325 mg PO DAILY 01/09/17 Atorvastatin Calcium [Lipitor 10 10 mg PO HS 01/09/17 mg (*)] Docusate Sodium [Colace 100 MG (*)] 100 mg PO BID 01/09/17 Magnesium Hydroxide [Milk of 30 ml PO DAILY PRN 01/09/17 Magnesia] Multivitamins [Multivitamin (*)] 1 each PO DAILY 01/09/17 Propylene Glycol/Peg 400 [SYSTANE 2 drops EACHEYE DAILY PRN 01/09/17 0.3-0.4% EYE DROPS] Warfarin Sodium [Coumadin 5MG (*)] 10 mg PO DAILY16 01/09/17 clonIDINE [Catapres (*)] 0.1 mg PO BID #60 tab 01/11/17 Benazepril HCl 01/29/17 Restasis Opht Drops(*) 01/29/17 Medical Decision Making - Diagnostics EKG Interpretation: EKG: Complete interpretation has been separately recorded in the [facility] archive. Summary impression: Normal sinus rhythm T-wave inversions in aVL Imaging Results: Chest x-ray two views shows possible retrocardiac infiltrate, interpreted by me , radiology interpretation is pending. ED Course/Re-evaluation: 5:00 a.m.- I spoke with the patient's son and DPOA on the phone. He tells me that the patient makes her own medical decisions. She did decide that she did not want to proceed with TAVR. He has been noticing that she is short of breath as well, he thinks she may be deconditioned. She is currently getting a DuoNeb. I will give her a small dose of Lasix as well for fluid overload. Labs have returned and do reveal an elevated BNP, though not as high as her previous admission. Her troponin is slightly elevated which I attribute to her aortic stenosis, doubt acute TN as the cause of this. I plan to admit her to the hospitalist service for observation. 5:20 a.m.- The patient would like to go home. I have explained to her because of her shortness of breath, she may not do well and could possibly get worse. It is unclear exactly what is causing this, it is likely fluid overload, though there could be underlying pneumonia or bronchitis. She says she was just in the hospital in prefers not to be here. She is aware of the risks of going home and is a competent decision maker. She does have daily home health per the paramedics report. I will plan to discharge her per her request. Differential Diagnosis: This is a 86-year-old female with history of severe aortic stenosis, atrial fibrillation on Coumadin with history of CVA who presents brought in by ambulance from her home after a fall. Apparently, she was on the ground for about 2 hours before she could get up. She denies any injuries and is not having any pain. She was noted to be short of breath by the paramedics. She initially refused transport, however they encouraged her to come in. She was given a DuoNeb EN route with some improvement in her symptoms. Here, she has normal oxygenation and is breathing comfortably, she does have coarse breath stones throughout her lung cullen. She does not have any other signs of overt fluid overload. Differential diagnosis includes CHF exacerbation, pneumonia, asthma, pulmonary embolism less likely given she is on Coumadin. - Data Points Laboratory Results: Laboratory Results 01/29/17 04:14 01/29/17 04:14 01/29/17 01/29/17 01/29/17 04:14 04:14 04:14 WBC 9.64 10^3/uL H 10^3/uL (3.80-9.50) RBC 5.28 10^6/uL 10^6/uL (4.18-5.33) Hgb 16.9 g/dL H g/dL (12.6-16.3) Hct 47.2 % H % (38.0-47.0) MCV 89.4 fL fL (81.5-99.8) MCH 32.0 pg pg (27.9-34.1) MCHC 35.8 g/dL g/dL (32.4-36.7) RDW 13.2 % % (11.5-15.2) Plt Count 203 10^3/uL 10^3/uL (150-400) PT 29.2 SEC H SEC (12.0-15.0) INR 2.72 H (0.83-1.16) APTT 31.0 SEC SEC (23.0-38.0) Sodium 134 mEq/L mEq/L (134-144) Potassium 5.4 mEq/L H mEq/L (3.5-5.2) Chloride 99 mEq/L mEq/L (97-110) Carbon Dioxide 20 mEq/l L mEq/l (22-31) Anion Gap 15 mEq/L mEq/L (8-16) BUN 17 mg/dL mg/dL (7-23) Creatinine 0.7 mg/dL mg/dL (0.6-1.0) Estimated GFR > 60 Glucose 116 mg/dL H mg/dL (70-100) Calcium 9.2 mg/dL mg/dL (8.5-10.4) Troponin I 0.159 ng/mL H ng/mL (0-0.034) NT-Pro-B Natriuret Pep 2070 pg/mL H pg/mL (0-450) Medications Given: Discontinued Medications Albuterol/Ipratropium (Duoneb) 3 ml IH EDNOW ONE Stop: 01/29/17 04:47 Last Admin: 01/29/17 05:07 Dose: 3 ml Furosemide (Lasix Injection) 10 mg IVP EDNOW ONE Stop: 01/29/17 04:55 Last Admin: 01/29/17 05:07 Dose: 10 mg Departure - Departure Disposition: [facility] Inpatient Acute Clinical Impression: Shortness of breath, Fall, Aortic stenosis, Elevated troponin Condition: Fair Instructions: Dyspnea (ED) Additional Instructions: Please return to the emergency room if you would like to be re-evaluated or admitted to the hospital.
[2017-01-29 04:24] LABS: HEMATOCRIT 47.2 % (38.0-47.0); HEMOGLOBIN 16.9 g/dL (12.6-16.3); MEAN CELL HEMOGLOBIN CONCENTR. 35.8 g/dL (32.4-36.7); MEAN CELL VOLUME 89.4 fL (81.5-99.8); RED BLOOD CELL COUNT 5.28 10^6/uL (4.18-5.33); RED CELL DISTRIBUTION WIDTH 13.2 % (11.5-15.2)
[2017-01-29 04:39] LABS: ANION GAP 15 mEq/L (8-16); CALCIUM 9.2 mg/dL (8.5-10.4); CARBON DIOXIDE 20 mEq/l (22-31); CHLORIDE 99 mEq/L (97-110); CREATININE 0.7 mg/dL (0.6-1.0); GLOMERULAR FILTRATION RATE > 60; GLUCOSE 116 mg/dL (70-100); POTASSIUM 5.4 mEq/L (3.5-5.2); SODIUM 134 mEq/L (134-144)
[2017-01-29] MEDS ORDERED: IPRATROPIUM/ALBUTEROL 3 ML DEYVIAL IH ONE (04:46)
[2017-01-29] MEDS ORDERED: FUROSEMIDE 100 MG/10 ML VIAL IVP ONE (04:54)
[2017-01-29 04:56] LABS: INR 2.72 (0.83-1.16); PROTIME(PATIENT) 29.2 SEC (12.0-15.0)
[2017-01-29] MEDS ORDERED: FUROSEMIDE 20 MG/2 ML VIAL ONE (05:00)
[2017-01-29 05:07] LABS: TROPONIN I 0.159 ng/mL (0-0.034)
--- NOTE | 2017-01-29 05:24 | CPEKG ---
Heart Rate: 91 RR Interval: 659 P-R Interval: 148 QRSD Interval: 84 QT Interval: 384 QTC Interval: 473 P Pearl: 58 QRS Pearl: -36 T Wave Pearl: 78 EKG Severity - ABNORMAL ECG - EKG Impression: SINUS RHYTHM EKG Impression: PROBABLE LEFT ATRIAL ABNORMALITY EKG Impression: LEFT AXIS DEVIATION EKG Impression: LEFT VENTRICULAR HYPERTROPHY EKG Impression: ANTERIOR Q WAVES, POSSIBLY DUE TO LVH Electronically Signed By: William Bond 30-Jan-2017 16:30:23
[2017-01-29 06:27] VITALS: PULSE 85; RESP 18; O2SAT 96
[2017-01-29 06:29] VITALS: BP 153/99
== END 2017-01-29 06:25 | disposition still patient (30) ==
LOC: EDUNIT#
DX: I35.0 Nonrheumatic aortic (valve) stenosis (principal); R79.89 Other specified abnormal findings of blood chemistry; I10 Essential (primary) hypertension; Z86.73 Personal history of transient ischemic attack (TIA), and cerebral infarction without residual deficits; Z85.3 Personal history of malignant neoplasm of breast; Z85.038 Personal history of other malignant neoplasm of large intestine; Z79.82 Long term (current) use of aspirin; Z79.01 Long term (current) use of anticoagulants; W18.39XA Other fall on same level, initial encounter
CPT/HCPCS: 96374

== ENCOUNTER 2017-03-14 11:25 | Observation (INO) | payer OTHER ==
--- NOTE | 2017-03-14 11:48 | EDPHY ---
H & P Time Seen by Provider: 03/14/17 11:25 HPI/ROS: CHIEF COMPLAINT: Found on the ground by caregiver HISTORY OF PRESENT ILLNESS: History of aortic stenosis, on warfarin, was found on the ground next to her bed. Was unsteady on her feet and hypoxic and complaining of feeling "uncomfortable" and mildly short of breath. No cough. No chest pain. Patient's dyspnea is severe. She does not think that she passed out. Worse with any exertion. REVIEW OF SYSTEMS: Eye: no change in vision ENT: no sore throat Cardiac: HPI Pulmonary: HPI Abdomen: no vomiting, diarrhea, abdominal pain Musculoskeletal: Chronic lower extremity edema and venous stasis changes Skin: no rash Neuro: no headache Constitutional: no fever : no urinary symptoms A comprehensive 10 point review of systems is otherwise negative aside from elements mentioned in the history of present illness. PAST MEDICAL HISTORY: Includes aortic stenosis and history of CHF. Discharge summary dated 01/11/2017 reviewed. Includes atrial fibrillation, history of stroke. Social history: History also from patient's caregiver Sujey, who is here after the ambulance arrives. At 12:05 p.m.: 183/122, respiratory rate 22, heart rate 100, temperature 35.7degrees, O2 sat 88% on room air. General Appearance: Alert and conversant, cooperative. Eyes: No scleral icterus. ENT, Mouth: Normal mucous membranes. Respiratory: Bilateral full field crackles. Cardiovascular: Regular rate and rhythm. Gastrointestinal: Abdomen is soft and non tender. Neurological: Alert and oriented x3. Normally conversant. Face symmetric, normal movement and sensation in all extremities. Skin: Bilateral lower extremity venous stasis changes, similar to take normal per the patient's caregiver. Musculoskeletal: 3+ bilateral pedal edema. Psychiatric: Not agitated. Emergency Department course/MDM: Hypoxia with supplemental oxygen on nasal cannula. Chest x-ray and BNP suggest congestive heart failure. Most likely due to aortic stenosis, also with elevated troponin. No aspirin given because of warfarin and elevated INR. Because of elevated INR I think pulmonary embolism is unlikely. Noncontrast head CT ordered for trauma because of age and on anticoagulation. 1335: Admission hospitalist with CHF and elevated troponin Smoking Status: Never smoked Constitutional: Initial Vital Signs O2 Sat (%) 97 03/14/17 11:25 O2 Delivery Mode Nasal Cannula O2 (L/minute) 3 Allergies/Adverse Reactions: No Known Allergies Allergy (Verified 11/30/14 03:06) Home Medications: Medication Instructions Recorded Esomeprazole Mag Trihydrate 40 mg PO DAILY 08/29/16 [Nexium] Levothyroxine [Synthroid 50 mcg 50 mcg PO DAILY06 08/29/16 (*)] amLODIPine BESYLATE [Norvasc 5 mg 5 mg PO DAILY 08/29/16 (*)] Aspirin [Aspirin 325 mg (*)] 325 mg PO DAILY 01/09/17 Atorvastatin Calcium [Lipitor 10 10 mg PO HS 01/09/17 mg (*)] Warfarin Sodium [Coumadin 5MG (*)] 10 mg PO DAILY16 01/09/17 clonIDINE [Catapres (*)] 0.1 mg PO BID #60 tab 01/11/17 Benazepril HCl 01/29/17 Medical Decision Making - Diagnostics EKG Interpretation: 12-lead EKG interpreted by me; official reading is in trace master. My interpretation is sinus rhythm with new anterior lateral T-wave inversions since January 29 of this year Imaging Results: Imaging Impressions Chest X-Ray 03/14/17 11:48 Impression: Moderate CHF, increased since the prior study. Head CT 03/14/17 11:48 Impression: 1. No acute intracranial findings. 2. Diffuse cerebral atrophy with periventricular and subcortical low attenuation consistent with chronic microvascular ischemic gliosis. 3. Additional findings as above. Findings discussed with Adonay Jimenez 03/14/2017, at 1227 hours. Differential Diagnosis: Differential diagnosis considered for shortness of breath including but not limited to pulmonary infectious process, COPD, asthma, pulmonary embolus and congestive heart failure. Consult/Admit Bed Type: [place] [id number] - Data Points Laboratory Results: Laboratory Results 03/14/17 12:35 03/14/17 12:35 03/14/17 03/14/17 03/14/17 12:35 12:35 12:35 WBC 13.29 10^3/uL H 10^3/uL (3.80-9.50) RBC 5.23 10^6/uL 10^6/uL (4.18-5.33) Hgb 16.6 g/dL H g/dL (12.6-16.3) Hct 47.7 % H % (38.0-47.0) MCV 91.2 fL fL (81.5-99.8) MCH 31.7 pg pg (27.9-34.1) MCHC 34.8 g/dL g/dL (32.4-36.7) RDW 13.4 % % (11.5-15.2) Plt Count 202 10^3/uL 10^3/uL (150-400) MPV 10.0 fL fL (8.7-11.7) Neut % (Auto) 89.0 % H % (39.3-74.2) Lymph % (Auto) 3.5 % L % (15.0-45.0) [place] % (Auto) 6.8 % % (4.5-13.0) Eos % (Auto) 0.0 % L % (0.6-7.6) Baso % (Auto) 0.2 % L % (0.3-1.7) Nucleat RBC Rel Count 0.0 % % (0.0-0.2) Absolute Neuts (auto) 11.84 10^3/uL H 10^3/uL (1.70-6.50) Absolute Lymphs (auto) 0.46 10^3/uL L 10^3/uL (1.00-3.00) Absolute Monos (auto) 0.91 10^3/uL H 10^3/uL (0.30-0.80) Absolute Eos (auto) 0.00 10^3/uL L 10^3/uL (0.03-0.40) Absolute Basos (auto) 0.02 10^3/uL 10^3/uL (0.02-0.10) Absolute Nucleated RBC 0.00 10^3/uL 10^3/uL (0-0.01) Immature Gran % 0.5 % % (0.0-1.1) Immature Gran # 0.06 10^3/uL 10^3/uL (0.00-0.10) PT 30.5 SEC H SEC (12.0-15.0) INR 2.88 H (0.83-1.16) Sodium 134 mEq/L mEq/L (134-144) Potassium 4.8 mEq/L mEq/L (3.5-5.2) Chloride 103 mEq/L mEq/L (97-110) Carbon Dioxide 20 mEq/l L mEq/l (22-31) Anion Gap 11 mEq/L mEq/L (8-16) BUN 23 mg/dL mg/dL (7-23) Creatinine 0.7 mg/dL mg/dL (0.6-1.0) Estimated GFR > 60 Glucose 101 mg/dL H mg/dL (70-100) Calcium 9.1 mg/dL mg/dL (8.5-10.4) Troponin I 0.216 ng/mL H ng/mL (0-0.034) NT-Pro-B Natriuret Pep 5090 pg/mL H pg/mL (0-450) Departure - Departure Disposition: [facility] Inpatient Acute Clinical Impression: Non-STEMI (non-ST elevated myocardial infarction) Acute exacerbation of congestive heart failure Qualifiers: Congestive heart failure type: unspecified congestive heart failure type Qualified Code(s): I50.9 - Heart failure, unspecified Condition: Fair
[2017-03-14 12:41] LABS: % IMMATURE GRANULYOCYTES 0.5 % (0.0-1.1); ABSOLUTE IMMATURE GRANULOCYTES 0.06 10^3/uL (0.00-0.10); ADD DIFF? NO; ADD MORPH? NO; ADD SCAN? NO; ATYPICAL LYMPHOCYTE FLAG 10 (0-99); FRAGMENT RBC FLAG 0 (0-99); HEMATOCRIT 47.7 % (38.0-47.0); HEMOGLOBIN 16.6 g/dL (12.6-16.3); LEFT SHIFT FLG 10 (0-99); LIPEMIA HEMOLYSIS FLAG 90 (0-99); MEAN CELL HEMOGLOBIN 31.7 pg (27.9-34.1); MEAN CELL HEMOGLOBIN CONCENTR. 34.8 g/dL (32.4-36.7); MEAN CELL VOLUME 91.2 fL (81.5-99.8); PLATELET CLUMPS FLAG 0 (0-99); PLATELET COUNT 202 10^3/uL (150-400); RED BLOOD CELL COUNT 5.23 10^6/uL (4.18-5.33); RED CELL DISTRIBUTION WIDTH 13.4 % (11.5-15.2)
--- NOTE | 2017-03-14 12:43 | CPEKG ---
Heart Rate: 94 RR Interval: 638 P-R Interval: 152 QRSD Interval: 84 QT Interval: 400 QTC Interval: 501 P [place]: 73 QRS [place]: -26 T Wave [place]: 102 EKG Severity - ABNORMAL ECG - EKG Impression: SINUS RHYTHM EKG Impression: ATRIAL PREMATURE COMPLEX EKG Impression: BORDERLINE LEFT AXIS DEVIATION EKG Impression: PROBABLE ANTEROSEPTAL INFARCT, AGE INDETERM EKG Impression: ABNORMAL T, CONSIDER ISCHEMIA, ANT-LAT LEADS EKG Impression: BORDERLINE PROLONGED QT INTERVAL Electronically Signed By: Adonay Jimenez 14-Mar-2017 12:44:56
[2017-03-14 12:52] LABS: INR 2.88 (0.83-1.16); PROTIME(PATIENT) 30.5 SEC (12.0-15.0)
[2017-03-14 12:57] LABS: ANION GAP 11 mEq/L (8-16); CALCIUM 9.1 mg/dL (8.5-10.4); CARBON DIOXIDE 20 mEq/l (22-31); CHLORIDE 103 mEq/L (97-110); CREATININE 0.7 mg/dL (0.6-1.0); GLOMERULAR FILTRATION RATE > 60; GLUCOSE 101 mg/dL (70-100); POTASSIUM 4.8 mEq/L (3.5-5.2); SODIUM 134 mEq/L (134-144)
[2017-03-14 13:08] LABS: TROPONIN I 0.216 ng/mL (0-0.034)
[2017-03-14] MEDS ORDERED: FUROSEMIDE 40 MG/4 ML VIAL IVP ONE (14:12)
[2017-03-14] MEDS ORDERED: ONDANSETRON DISINTEGRATING 4 MG TAB PO PRN (15:44)
[2017-03-14] MEDS ORDERED: ACETAMINOPHEN 325 MG TAB PO PRN (15:44)
[2017-03-14] MEDS ORDERED: ONDANSETRON 4 MG/2 ML VIAL IVP PRN (15:44)
[2017-03-14] MEDS ORDERED: amLODIPine BESYLATE 5 MG TAB PO PRN (15:45)
[2017-03-14] MEDS ORDERED: WARFARIN SODIUM 5 MG TAB PO SCH (16:00)
--- NOTE | 2017-03-14 16:48 | GHP ---
[f rep st] HISTORY AND PHYSICAL DATE OF ADMISSION: 03/14/2017 CHIEF COMPLAINT: Fall. HISTORY OF PRESENT ILLNESS: This is an 86-year-old female with a severe aortic stenosis, among othe r medical problems. She is on chronic anticoagulation. She has been hospitalized a few times for s yncope related to aortic stenosis, as well as fluid overload, syncope related to aortic stenosis. T miranda, she states that she fell. She had a mechanical fall and tripped, although she is difficult to understand due to being hard of hearing. She says she was there for 2 hours before someone was abl e to the help her up. She denies syncope. She denies any palpitations or shortness of breath. She says she was feeling normal prior to the fall. She does admit to worsening lower extremity edema t rhea. She denies any fevers or chills. No cough. REVIEW OF SYSTEMS: A 10-point review of systems was obtained, and other than stated was negative. PAST MEDICAL HISTORY: 1. Moderate to severe aortic stenosis, and moderate to severe mitral regurgitation. 2. History of stroke and severe carotid stenosis, on chronic Coumadin. 3. History of breast cancer, bilateral mastectomy. 4. History of colon cancer. 5. Atrial fibrillation. 6. Esophageal stenosis. 7. Hypothyroidism. 8. Spinal stenosis. 9. Hypertension. PAST SURGICAL HISTORY: 1. Right mastectomy. 2. Hysterectomy. SOCIAL HISTORY: Lives alone. FAMILY HISTORY: Both parents are . PHYSICAL EXAM: VITAL SIGNS: Afebrile, blood pressure is 122/82, heart rate 95, oxygen saturation i s 88% on room air, 97% on 3 L. GENERAL: The patient is elderly, in no apparent distress. HEENT: Nonicteric sclerae. Extraocular movements intact. Dry mucous membranes. NECK: Supple. No thyrom egaly. Not a lot in the way of JVD. LUNGS: Good effort. Decreased breath sounds, but clear to au scultation bilaterally. CARDIOVASCULAR: Regular rate and rhythm. Faint murmur heard at the right upper sternal border. ABDOMEN: Positive bowel sounds. Soft, nontender, nondistended. No hepatosp lenomegaly. EXTREMITIES: No clubbing, cyanosis. There is 2+ edema with chronic venostasis changes . NEUROLOGIC: Alert and oriented x3. Moving all 4 extremities equally. PSYCH: Normal mood and a ffect. LABS: White blood cell count elevated at 13, hemoglobin 16, INR is 2.88, creatinine is 0.7, troponi n is 0.216. BNP level of 5,000, and discharge BNP level in December was 3,400, and in early January it was 2,000. Chest x-ray, personally reviewed and interpreted, shows worsening congestive heart failure. EKG, personally reviewed and interpreted, shows a normal sinus rhythm. T-wave inversions in all of the septal leads. This is pretty much unchanged from last EKG. Also head CT results, personally reviewed and interpreted, show no acute intracranial findings. ASSESSMENT: An 86-year-old female with significant valve disease presenting with fall. PLAN: 1. Fall. The patient says this was mechanical, and says she was not feeling ill prior to this. It could be from her valvular heart disease. We will get Physical Therapy to evaluate. 2. Mild congestive heart failure exacerbation. I am going to give her a dose of Lasix today, and t hen probably reevaluate tomorrow before giving her more Lasix. I believe she did not tolerate chron ic diuretic therapy in the past, but we will probably get Cardiology to see her, as they probably hector ve more history with her outpatient. I know that her medications are difficult to manage, and she i s very sensitive. 3. Mild troponin elevation. This is probably due to her atrial fibrillation, and we will get anoth er troponin in the morning. 4. Hypertension. We will continue medications. 5. History of previous cerebrovascular accident/atrial fibrillation. We will continue warfarin. CODE STATUS: Patient is a DNR. /[id number]/MODL
[2017-03-14] MEDS: BENAZEPRIL HCL 10 MG TAB PO SCH (19:55)
[2017-03-14] MEDS: DOCUSATE SODIUM 100 MG CAP PO SCH (19:55)
[2017-03-14] MEDS ORDERED: ATORVASTATIN CALCIUM 10 MG TAB PO SCH (21:00)
[2017-03-15 05:22] LABS: % IMMATURE GRANULYOCYTES 1.1 % (0.0-1.1); ABSOLUTE IMMATURE GRANULOCYTES 0.09 10^3/uL (0.00-0.10); ADD DIFF? NO; ADD MORPH? NO; ADD SCAN? NO; ATYPICAL LYMPHOCYTE FLAG 0 (0-99); FRAGMENT RBC FLAG 0 (0-99); HEMATOCRIT 38.7 % (38.0-47.0); HEMOGLOBIN 13.4 g/dL (12.6-16.3); LEFT SHIFT FLG 10 (0-99); LIPEMIA HEMOLYSIS FLAG 90 (0-99); MEAN CELL HEMOGLOBIN 31.3 pg (27.9-34.1); MEAN CELL HEMOGLOBIN CONCENTR. 34.6 g/dL (32.4-36.7); MEAN CELL VOLUME 90.4 fL (81.5-99.8); MEAN PLATELET VOLUME 11.2 fL (8.7-11.7); PLATELET CLUMPS FLAG 0 (0-99); PLATELET COUNT 162 10^3/uL (150-400); RED BLOOD CELL COUNT 4.28 10^6/uL (4.18-5.33); RED CELL DISTRIBUTION WIDTH 13.5 % (11.5-15.2)
[2017-03-15 05:31] LABS: ALANINE AMINOTRANSFERASE 52 IU/L (9-52); ALBUMIN 2.8 g/dL (3.5-5.0); ALKALINE PHOSPHATASE 56 IU/L (38-126); ANION GAP 7 mEq/L (8-16); ASPARTATE AMINOTRANSFERASE 49 IU/L (14-46); BILIRUBIN,TOTAL 0.7 mg/dL (0.1-1.4); CALCIUM 8.5 mg/dL (8.5-10.4); CARBON DIOXIDE 22 mEq/l (22-31); CHLORIDE 104 mEq/L (97-110); CREATININE 0.7 mg/dL (0.6-1.0); GLOMERULAR FILTRATION RATE > 60; GLUCOSE 73 mg/dL (70-100); SODIUM 133 mEq/L (134-144); TOTAL PROTEIN 4.9 g/dL (6.3-8.2)
[2017-03-15 05:42] LABS: TROPONIN I 0.883 ng/mL (0-0.034)
[2017-03-15 05:47] LABS: INR 2.91 (0.83-1.16); PROTIME(PATIENT) 30.8 SEC (12.0-15.0)
[2017-03-15] MEDS ORDERED: LEVOTHYROXINE 50 MCG TAB PO SCH (06:00)
[2017-03-15] MEDS ORDERED: PANTOPRAZOLE SODIUM 40 MG TAB PO SCH (06:00)
[2017-03-15] MEDS: BENAZEPRIL HCL 10 MG TAB PO SCH (07:41)
[2017-03-15] MEDS: DOCUSATE SODIUM 100 MG CAP PO SCH (07:42)
[2017-03-15] MEDS ORDERED: ASPIRIN 325 MG TAB PO SCH (09:00)
[2017-03-15] MEDS ORDERED: NON-FORMULARY NEW DRUG (Esomeprazole Mag Trihydrate [Nexium] 40 MG) PO SCH (09:00)
[2017-03-15] MEDS ORDERED: FUROSEMIDE 40 MG/4 ML VIAL IVP ONE (11:04)
--- NOTE | 2017-03-15 11:04 | SOAPPROG ---
SOAP Progress Note Assessment/Plan: Assessment: Cardiology consultation performed and dictated. 86 y/o woman with echo in 01/12 showing LVEF 53% with moderate , moderate to severe MR, mild TR and estimated PAS 55mmHg and HTN. Did not want any other cardiac testing and known DNR. Feel in her house yesterday while walking to bathroom. Admitted to hospitalist's service. NT-pro BNP 5,090 and CXR with mild pulmonary edema and serial troponins 0.9. ECG with anterior-lateral TWI consistent with ischemia. Pt complains only of chronic leg edema. Denies CP, AMBROSIO , syncope or PND. She is adamant she will go home today and reiterates wants no further cardiac evaluation or invasive testing. REC: 1)lasix 20mg IV now 2)discharge home later this afternoon. 3)start Lasix 20mg PO qam as out-patient Thursday. 4)continue ASA and Amlodipine and Lotensin at current doses. 5)will set up labs in five days (CBC, BMP, BNP and troponin) and then follow up Dr. Jean Grimes or Abimael Holman at [facility] seven days from discharge. We will call pt at her home tommorrow to arrange. Thanks. 03/15/17 11:00 Objective: Vital Signs Temp Pulse Resp BP Pulse Ox 36.5 C 69 19 117/73 99 03/15/17 07:43 03/15/17 07:43 03/15/17 07:43 03/15/17 07:43 03/15/17 07:43 Laboratory Results 03/15/17 04:00 03/15/17 04:00 03/14/17 03/15/17 03/16/17 05:59 05:59 05:59 Intake Total 700 Output Total 950 Balance -250 PT 30.8 SEC (12.0-15.0) H 03/15/17 04:00 INR 2.91 (0.83-1.16) H 03/15/17 04:00 ICD10 Worksheet Patient Problems: Problems Problem Status Onset Acute exacerbation of congestive heart failure Acute Non-STEMI (non-ST elevated myocardial infarction) Acute Fall Acute Wrist fracture, left Acute
--- NOTE | 2017-03-15 12:21 | GCON ---
[f rep st] CONSULTATION CARDIOLOGY CONSULTATION DATE OF CONSULTATION: 03/15/2017 REFERRING PHYSICIAN: Rhianna Francisco MD REASON FOR CONSULTATION: Evaluate woman with elevated troponin, BNP level, and EKG consistent with anterolateral ischemia. HISTORY OF PRESENT ILLNESS: I was asked by Dr. Rhianna Francisco to consult for the above reasons. Th e patient is an 86-year-old woman with an echo done in December of 2016, which demonstrated an LVEF of 53%, with moderate aortic stenosis, and arakulmv-xo-flmakm mitral regurgitation, with mild tricuspid insufficiency and an estimated PA pressure of 55 mmHg. The peak and mean gradients were aortic deedee ve was 50 in 29 mmHg, respectively. She met my partner, Dr. Jean Grimes, at the time, and did not wish any further cardiac evaluation. He saw her later in December as an outpatient, and she reinforced that. She has been having chronic lower extremity edema, but no chest pain, orthopnea, or syncope. Yesterday she fell while walking to her bathroom at her house. She was admitted to the hospital, and chest x-ray in the emergency room demonstrated mild bilateral pulmonary edema. Her NT-proBNP le maritza was 5090. Her peak troponin was 0.9, and her EKG demonstrated normal sinus rhythm, with T-wave inversions anterolaterally. She is currently chest pain-free, with no shortness of breath sitting i n her chair. She wants to go home tonight, and reiterated she wants no further cardiac testing. Stella lester would be willing to take a diuretic to see if it helps her leg edema. She denies palpitations or syncope. PAST MEDICAL HISTORY: Moderate aortic stenosis with cefoklqu-yn-nbvkyh mitral regurgitation; paroxy smal atrial fibrillation, with previous CVAs, on Coumadin; carotid artery disease; breast cancer; es ophageal strictures; hypertension; and spinal stenosis. PAST SURGICAL HISTORY: Hysterectomy and right mastectomy. CURRENT MEDICATIONS: Amlodipine 5 mg p.r.n., aspirin 325 mg per day, Atorvastatin 10 mg per day, Lo tensin 10 mg twice daily, clonidine 0.1 mg p.r.n., Coumadin, Synthroid, and Lasix 40 mg IV x1. ALLERGIES: No known drug allergies. SOCIAL HISTORY: The patient lives independently, but does have a nurse who comes over to her house regularly. She denies tobacco or alcohol use. FAMILY HISTORY: Unremarkable for premature coronary artery disease. REVIEW OF SYSTEMS: The patient reports no headache or fevers or chills or GI bleed symptoms, such a s hematemesis, melena, or bright red blood per rectum. Rest of 10-point review of systems is negati ve. PHYSICAL EXAM: VITAL SIGNS: Afebrile, pulse 69 and regular, blood pressure 117/73, respirations 20 , weight 59.1 kg. GENERAL: An older-appearing woman in no acute distress, without chest pain or usi ng excess respiratory muscles. HEENT: Eyes: Pupils equal and reactive to light. ENT: Oral mucos a with no cyanosis. NECK: Jugular venous pressure to 7 cm. Carotid pulses 2+ bilaterally. No nuc reggie rigidity. LUNGS: Clear to auscultation bilaterally without rales, rhonchi, or wheezing. HEART : Regular rate and rhythm, with 2/6 holosystolic murmur and no S3. ABDOMEN: Soft and nontender. No guarding or rebound. EXTREMITIES: 1+ bilateral edema to just below the level of her knees. SKI N: No bleeding or cyanosis. NEUROLOGIC: Alert and oriented x3. DIAGNOSTIC STUDIES: EKG: Normal sinus rhythm, with no acute ST elevation. T-wave inversions noted in V2 through V6, and poor R-wave progression in the anterior leads. LABS: White count 8.1, hematocrit 39, platelets 162,000, MCV 90. INR 2.91. Sodium 133, potassium 4.0, chloride 104, bicarb 22, BUN 24, creatinine 0.7, glucose 73. Troponin 0.9. Albumin 2.8. NT-p roBNP level 5090. IMPRESSION: 86-year-old woman with moderate aortic stenosis and lfqchgih-uh-vmdyik mitral regurgita tion, status post mechanical fall at home. She appears mildly hypervolemic. She may have underlyin g coronary artery disease. She is do not resuscitate status, and does not want any further cardiac testing, and really wants to go home today. I suggested she stay for another 24 hours with IV Lasix , and she declines. RECOMMENDATIONS: 1. Would give another dose of Lasix 40 mg IV x1 now. 2. Would send her home later this afternoon, and start on Lasix 20 mg p.o. q.a.m. thereafter. 3. Rest of medications without change. 4. Will arrange labs in 5 days from discharge including a CBC, BMP panel, BNP level, and troponin l evel to make sure it is trending down. 5. Will have her seen in the cardiology clinic in 7 days for re-evaluation. /[id number]/MODL
[2017-03-15 12:47] VITALS: BP 94/61; PULSE 71; RESP 18; TEMP 98.1; O2SAT 97
--- NOTE | 2017-03-15 12:59 | PDIAF ---
- Diagnosis Diagnosis: CHF Code Status: Do Not Resuscitate - Medication Management Discharge Medications: Medications to Continue on Transfer Esomeprazole Mag Trihydrate [Nexium] 40 mg PO DAILY 08/29/16 [Last Taken Unknown ] Levothyroxine [Synthroid 50 mcg (*)] 50 mcg PO DAILY06 08/29/16 [Last Taken Unknown] amLODIPine BESYLATE [Norvasc 5 mg (*)] 5 mg PO DAILY PRN 08/29/16 [Last Taken Unknown] Aspirin [Aspirin 325 mg (*)] 325 mg PO DAILY 01/09/17 [Last Taken Unknown] Atorvastatin Calcium [Lipitor 10 mg (*)] 10 mg PO HS 01/09/17 [Last Taken Unknown] Warfarin Sodium [Coumadin 5MG (*)] 10 mg PO DAILY16 01/09/17 [Last Taken ] Benazepril HCl [Lotensin (*)] 10 mg PO BID 01/29/17 [Last Taken Unknown] Calcium Carbonate/Vitamin D3 [CALCIUM 600 + VIT D TABLET] 1 each PO BID [Last Taken Unknown] Docusate Sodium [Colace 100 MG (*)] 100 mg PO BID 03/14/17 [Last Taken Unknown] Multivitamins [Multivitamin (*)] 1 each PO DAILY 03/14/17 [Last Taken Unknown] clonIDINE [Catapres (*)] 0.1 mg PO BID PRN 03/14/17 [Last Taken Unknown] Furosemide [Lasix 20 MG (*)] 20 mg PO DAILY #30 tab 03/15/17 [Last Taken Unknown ] Discharge Medications: Refer to the Discharge Home Medication list for PRN reason. - Orders Services needed: Home Care, Registered Nurse, Physical Therapy, Occupational Therapy Home Care Face to Face: I certify that this patient was under my care and that I had the required [id number] encounter meeting the encounter requirements on the discharge day. My findings support the fact that the patient is homebound as defined in CMS Chapter 7 Medicare Benefits Manual 30.1.1, The condition of the patient is such that there exists a normal inability to leave home and consequently, leaving home would require a considerable and taxing effort. Diet Recommendation: sodium restricted Weigh Patient: daily - Labs/Radiology BMP Date: 03/19/17 CBC Date: 03/19/17 Other Lab Name, Date and Time: BNP and troponin 03/19/17 - Follow Up Care Current Providers and Referrals: UNK,UNKNOWN [Other] - As per Instructions Abimael Holman MD [Medical Doctor] - follow up in 1 week
--- NOTE | 2017-03-15 16:30 | GDS ---
[f rep st] DISCHARGE SUMMARY DISCHARGE DIAGNOSES: 1. Acute on chronic systolic congestive heart failure. 2. Moderate aortic stenosis. 3. Moderate to severe mitral regurgitation. 4. Possible coronary artery ischemia. 5. History of stroke with severe carotid stenosis, on chronic Coumadin. 6. Breast cancer status post bilateral mastectomy. 7. History of colon cancer. 8. History of atrial fibrillation. HISTORY: This patient is an 86-year-old female who had a mechanical fall and was found to be mildly volume overloaded on presentation. Reportedly she has had difficulty tolerating Lasix in the past. HOSPITAL COURSE: She got 2 doses of IV Lasix here in the hospital and was seen by Dr. Holman. He re commends 20 mg p.o. Lasix daily with close outpatient following. She had some mild troponin elevations with a peak of 0.883. EKG did show some possible dynamic ante rior T-wave inversions. The patient had no chest pain or other symptoms suggestive of ischemia. She has been very consistent during this hospitalization as well as previous hospitalizations that s he wants no further testing or aggressive treatment. We will therefore continue with medical manage ment. PT and OT saw her and did feel comfortable discharging home with her son, who is here with her for t he next 3 weeks. She will follow up closely with Cardiology in the office. DISCHARGE MEDICATIONS: Please see computer record for full detailed list. New medication: Lasix 2 0 mg p.o. daily. DISCHARGE INSTRUCTIONS: 1. Follow up laboratory studies this upcoming . Dr. Holman recommends CBC, chem 7, BNP and troponin. 2. Follow up with Dr. Holman in 1 week. 3. Home health was offered and declined, as she already has private paid caregivers. The patient was seen and examined by me on the day of discharge. /[id number]/MODL
== END 2017-03-15 16:08 | disposition home or self-care (01) ==
LOC: EDUNIT# → INTOOBSV 13:16 → F2W 14:55
PROVIDERS: ADMIT Internal Medicine; ATTEND Internal Medicine
DX: I50.23 Acute on chronic systolic (congestive) heart failure (principal); I11.0 Hypertensive heart disease with heart failure; I35.0 Nonrheumatic aortic (valve) stenosis; I34.0 Nonrheumatic mitral (valve) insufficiency; I65.29 Occlusion and stenosis of unspecified carotid artery; I48.91 Unspecified atrial fibrillation; Z86.73 Personal history of transient ischemic attack (TIA), and cerebral infarction without residual deficits; Z85.038 Personal history of other malignant neoplasm of large intestine; Z79.01 Long term (current) use of anticoagulants; Z85.3 Personal history of malignant neoplasm of breast
CPT/HCPCS: 70450; 71020; 93005; 97162; 97165; G0378; G8978; G8979; G8987; G8988; J1940

== ENCOUNTER → 2017-03-25 | Outpatient (CLI) | payer OTHER | LOC: BHFA 15:00 | PROVIDERS: ATTEND Internal Medicine Cardiovascular Disease | DX: I50.32 Chronic diastolic (congestive) heart failure (principal); I08.0 Rheumatic disorders of both mitral and aortic valves; R06.02 Shortness of breath; R60.9 Edema, unspecified ==

== ENCOUNTER 2017-07-04 02:06 | Inpatient (IN) | payer OTHER ==
--- NOTE | 2017-07-04 02:15 | EDPHY ---
H & P HPI/ROS: HPI CHIEF COMPLAINT: Limited +trauma. HISTORY OF PRESENT ILLNESS: This patient 87-year-old female, presents emergency room history of congestive heart failure, aortic stenosis, severe mitral regurg, coronary artery disease, history of stroke, colon cancer in AFib on Coumadin, presents as a limited +trauma. She presents from private residence. She was transferring off the toilet. She caught her left arm off the side of the counter. Corner. This caused a significant forearm laceration. Due to her being on Coumadin she presents emergency room is limited +trauma. There is no evidence of head injury. She is at her neurological baseline, she is alert or x4, GCS 15. In no acute distress. Patient denies LOC or syncope. Past Medical History: Heart failure, aortic stenosis critical, severe mitral regurg, coronary artery disease, history of stroke, breast cancer, colon cancer , AFib on Coumadin Past Surgical History: No recent surgery Social History: Denies daily use drugs alcohol tobacco products. Family History: Noncontributory ROS REVIEW OF SYSTEMS: A comprehensive 10 point review of systems is otherwise negative aside from elements mentioned in the history of present illness. Exam Constitutional GCS 15, alert or x4, triage nursing summary reviewed, vital signs reviewed, awake/alert. Eyes normal conjunctivae and sclera, EOMI, PERRLA. HENT normal inspection, atraumatic, moist mucus membranes, no epistaxis, neck supple/ no meningismus, no raccoon eyes. Respiratory clear to auscultation bilaterally, normal breath sounds, no respiratory distress, no wheezing. Cardiovascular rate normal, regular rhythm, no murmur, no edema, distal pulses normal. Gastrointestinal soft, non-tender, no rebound, no guarding, normal bowel sounds, no distension, no pulsatile mass. Genitourinary no CVA tenderness. Musculoskeletal left upper extremity: Neurovascular intact good distal pulse. Radial pulse. Good cap refill. Good associate director strength. Rather large soft tissue injury to the left forearm. Approximately 10 cm laceration through the skin and fat. No muscle or tendon involvement. No bony involvement. No evidence arterial injury or tendon injury. no midline vertebral tenderness, full range of motion, no calf swelling, no tenderness of extremities, no meningismus, good pulses, neurovascularly intact. Skin pink, warm, & dry, no rash, skin atraumatic. Neurologic awake, alert and oriented x 3, AAOx3, moves all 4 extremities equally, motor intact, sensory intact, CN II-XII intact, normal cerebellar, normal vision, normal speech. Psychiatric normal mood/affect. Heme/Lymph/Immune no lymphadenopathy. Differential Diagnosis: Includes but is not limited to in a particular order arm laceration, soft tissue injury, full-thickness injury, fracture. Medical Decision Making: Plan for this patient EKG, blood work check INR, x- ray left forearm, chest x-ray. Make sure tetanus shot is up-to-date. Will consult General surgery or surgery for left arm laceration. Re-evaluation: 0346: EKG interpretation by me on record in [facility] system. Impression time of EKG 3:45 a.m., this is sinus rhythm rate 87. I do not appreciate acute ischemic change or signs of cardiac arrhythmia. LVH present. CT scan of the head without IV contrast for trauma The results of the study are negative for acute disease The study was read by Dr. Sanford I viewed the images myself on the PACS system. The ED x-ray left forearm. No evidence of fracture. Soft tissue injury present. ED x-ray chest two view: Chronic lung disease. No other acute abnormality. Laceration Repair: Large gaping wound. Of note this wound had to be debrided wound edges for loose skin tears. Jagged edges. This patient had her wound copiously irrigated with 2 L of normal saline under pulsatile pressure the wound was copiously irrigated no foreign bodies appreciated. No arterial injury. No tendon involvement. No bony involvement. All soft tissue subcutaneous fat and skin were involved. The wound edges were debrided. Jagged edges. And skin tears removed. After copious irrigation the wound was repaired under sterile conditions. She did receive Ancef 2 g. Laceration Repair Procedure: Verbal Consent was obtained, Under sterile conditions, The patient had lidocaine with epinephrine used approximately 12 ccs to local anesthetize the Left Forearm Laceration 10CM. The wound was copiously irrigated with sterile fluid, the wound was explored for foreign bodies there were none visualized, the wound was explored with a sterile glove to the base. There are no deep structures involved, including no arterial injury. FIFTEEN 5.0 Prolene interrupted Sutures were placed in this patient's laceration. Se had good close approximation of the wound edges. She Tolerated this well. Given that this patient has a limited trauma + due to being on Coumadin. Trauma surgery was consulted. However the patient be admitted to the medicine service with Trauma surgery consult for hyponatremia. Additionally they will need to follow her left rather large forearm laceration on Coumadin. There is a left forearm hematoma. However compartments are soft at this time. Wound is closed. In the center of this laceration there is a defect of soft tissue. 2 cm x 2 cm. This will need to be followed by wound care and surgery. Plan is for patient be admitted to the hospitalist service for hyponatremia and fall. Trauma surgery consult for fall on Coumadin with left arm hematoma left arm rather large laceration with wound. 0612AM: Patient admitted to the hospitalist service. Reason for admission hyponatremia, fall, large left arm laceration and hematoma. On Coumadin. Dr. Gonzalez Lima with Trauma Sx consulting on the patient. Additionally do believe pain need wound care in-house. Observation for compartment syndrome. As well as pain control. Source: Patient, EMS - Personal History Tetanus Vaccine Date: 2011 - Medical/Surgical History Hx Asthma: No Hx Chronic Respiratory Disease: No Hx Diabetes: No Hx Cardiac Disease: Yes Hx Renal Disease: No Hx Cirrhosis: No Hx Alcoholism: No Hx HIV/AIDS: No Hx Splenectomy or Spleen Trauma: No Other PMH: CVA in 2003, HTN, Breast Ca. Colon Ca., ,HYPOTHYROIDISM, poss CHF, R mastectomy, hyst., APPY - Social History Smoking Status: Never smoked Constitutional: Initial Vital Signs Temperature (C) 36.4 C 07/04/17 03:25 Heart Rate 93 07/04/17 03:25 Respiratory Rate 20 07/04/17 03:25 Blood Pressure 182/111 H 07/04/17 03:25 O2 Sat (%) 99 07/04/17 03:25 O2 Delivery Mode Room Air Allergies/Adverse Reactions: No Known Allergies Allergy (Verified 11/30/14 03:06) Home Medications: Medication Instructions Recorded Esomeprazole Mag Trihydrate 40 mg PO DAILY@0600 08/29/16 [Nexium] Levothyroxine [Synthroid 50 mcg 50 mcg PO DAILY06 08/29/16 (*)] amLODIPine BESYLATE [Norvasc 5 mg 5 mg PO DAILY PRN 08/29/16 (*)] Aspirin [Aspirin 325 mg (*)] 325 mg PO DAILY 01/09/17 Atorvastatin Calcium [Lipitor 10 10 mg PO HS 01/09/17 mg (*)] Warfarin Sodium [Coumadin 5MG (*)] 5 mg PO MO@1600 01/09/17 Benazepril HCl [Lotensin (*)] 10 mg PO BID 01/29/17 Calcium Carbonate/Vitamin D3 1 each PO BIDMEAL 03/14/17 [CALCIUM 600 + VIT D TABLET] Docusate Sodium [Colace 100 MG (*)] 200 mg PO BID 03/14/17 Multivitamins [Multivitamin (*)] 1 each PO DAILY 03/14/17 clonIDINE [Catapres (*)] 0.1 mg PO BID PRN 03/14/17 Furosemide [Lasix 20 MG (*)] 20 mg PO DAILY #30 tab 03/15/17 Warfarin Sodium [Coumadin 5MG (*)] 10 mg PO SUTUWETHFRSA@1600 07/04/17 cycloSPORINE 0.05% [Restasis Opht 1 drop EACHEYE BID 07/04/17 Drops(*)] Medical Decision Making - Data Points Laboratory Results: Laboratory Results 07/04/17 02:45 07/04/17 02:45 Medications Given: Acetaminophen (Tylenol) 650 mg PO Q4HRS PRN PRN Reason: Pain, Mild/Fever, Can Take PO Stop: 12/31/17 09:46 Last Admin: 07/04/17 20:04 Dose: 650 mg Atorvastatin Calcium (Lipitor) 10 mg PO HS [facility] Stop: 12/31/17 20:59 Last Admin: 07/05/17 21:13 Dose: 10 mg Benazepril HCl (Lotensin) 10 mg PO BID MARCIA Stop: 12/31/17 10:29 Last Admin: 07/05/17 21:12 Dose: 10 mg Cyclosporine (Restasis) 1 drop EACHEYE BID MARCIA Stop: 12/31/17 20:59 Last Admin: 07/05/17 21:13 Dose: 1 drop Docusate Sodium (Colace) 200 mg PO BID MARCIA Stop: 12/31/17 20:59 Last Admin: 07/05/17 21:12 Dose: 200 mg Furosemide (Lasix) 20 mg PO DAILY MARCIA Stop: 01/01/18 08:59 Last Admin: 07/05/17 11:29 Dose: 20 mg Levothyroxine Sodium (Synthroid) 50 mcg PO DAILY06 [facility] Stop: 01/01/18 10:06 Last Admin: 07/05/17 11:29 Dose: 50 mcg Pantoprazole Sodium (Protonix) 40 mg PO DAILY@0600 [facility] Stop: 01/01/18 05:59 Last Admin: 07/05/17 06:36 Dose: 40 mg Discontinued Medications Furosemide (Lasix Injection) 40 mg IVP ONCE ONE Stop: 07/05/17 14:52 Last Admin: 07/05/17 18:53 Dose: 40 mg Furosemide (Lasix Injection) 40 mg IVP ONCE ONE Stop: 07/05/17 18:16 Last Admin: 07/05/17 18:53 Dose: Not Given Cefazolin Sodium/Dextrose (Ancef 2 Gm (Premix)) 100 mls @ 200 mls/hr IV EDNOW ONE PRN Reason: Protocol Stop: 07/04/17 03:04 Last Admin: 07/04/17 02:57 Dose: 100 mls Phytonadione (Vitamin K) 1.25 mg PO ONCE ONE Stop: 07/05/17 10:45 Last Admin: 07/05/17 11:28 Dose: 1.25 mg Departure - Departure Disposition: [facility] Inpatient Acute Clinical Impression: Hyponatremia Arm laceration Qualifiers: Encounter type: initial encounter Laterality: left Qualified Code(s): S41.112A - Laceration without foreign body of left upper arm, initial encounter Hematoma of arm Qualifiers: Encounter type: initial encounter Laterality: left Qualified Code(s): S40.022A - Contusion of left upper arm, initial encounter Fall Qualifiers: Encounter type: initial encounter Qualified Code(s): W19.XXXA - Unspecified fall, initial encounter Condition: Fair
[2017-07-04] MEDS ORDERED: ceFAZolin 2 GM/DEXTROSE 100 ML IV ONE (02:35)
[2017-07-04 03:07] LABS: % IMMATURE GRANULYOCYTES 0.8 % (0.0-1.1); ABSOLUTE IMMATURE GRANULOCYTES 0.04 10^3/uL (0.00-0.10); ADD DIFF? NO; ADD MORPH? NO; ADD SCAN? NO; ATYPICAL LYMPHOCYTE FLAG 0 (0-99); FRAGMENT RBC FLAG 0 (0-99); HEMATOCRIT 41.5 % (38.0-47.0); HEMOGLOBIN 14.7 g/dL (12.6-16.3); LEFT SHIFT FLG 0 (0-99); LIPEMIA HEMOLYSIS FLAG 90 (0-99); MEAN CELL HEMOGLOBIN 31.3 pg (27.9-34.1); MEAN CELL HEMOGLOBIN CONCENTR. 35.4 g/dL (32.4-36.7); MEAN CELL VOLUME 88.3 fL (81.5-99.8); MEAN PLATELET VOLUME 10.3 fL (8.7-11.7); PLATELET CLUMPS FLAG 90 (0-99); PLATELET COUNT 212 10^3/uL (150-400); RED CELL DISTRIBUTION WIDTH 13.2 % (11.5-15.2)
[2017-07-04 03:11] LABS: ANION GAP 10 mEq/L (8-16); CALCIUM 9.6 mg/dL (8.5-10.4); CARBON DIOXIDE 22 mEq/l (22-31); CHLORIDE 92 mEq/L (97-110); CREATININE 0.8 mg/dL (0.6-1.0); GLOMERULAR FILTRATION RATE > 60; GLUCOSE 91 mg/dL (70-100); POTASSIUM 4.6 mEq/L (3.5-5.2); SODIUM 124 mEq/L (134-144)
[2017-07-04 03:25] LABS: TROPONIN I 0.014 ng/mL (0.000-0.034)
[2017-07-04 03:31] LABS: INR 2.69 (0.83-1.16); PROTIME(PATIENT) 28.9 SEC (12.0-15.0)
--- NOTE | 2017-07-04 03:46 | CPEKG ---
Heart Rate: 87 RR Interval: 690 P-R Interval: 172 QRSD Interval: 86 QT Interval: 396 QTC Interval: 477 P [place]: 66 QRS [place]: -34 T Wave [place]: 84 EKG Severity - ABNORMAL ECG - EKG Impression: SINUS RHYTHM EKG Impression: LEFT ATRIAL ABNORMALITY EKG Impression: LEFT AXIS DEVIATION EKG Impression: LEFT VENTRICULAR HYPERTROPHY EKG Impression: ANTERIOR Q WAVES, POSSIBLY DUE TO LVH Electronically Signed By: Emiliano Black 04-Jul-2017 07:06:00
--- NOTE | 2017-07-04 06:43 | GCON ---
[f rep st] CONSULTATION CHIEF COMPLAINT: Fall with L arm degloving injury and electrolyte abnormalities. HISTORY OF PRESENT ILLNESS: This is an 87-year-old female, who presents to the [facility] Emergency Department as a limited plus trauma activation. Briefly, it sounds as though the patient was in her private residence and she lives alone , she sustained a mechanical fall and apparently caught herself on the counter as she went down and sustained a degloving injury on her left upper extremity. The patient has a very significant and extensive past medical history namely she is in atrial fibrillation on Coumadin. At any rate, she was subsequently brought here. On arrival, she was alert and oriented. GCS was 15. She was protecting her airway. She had adequate breathing and normal circulation. She did, however, have a significant degloving injury to the left upper extremity which was bleeding. The patient really denies having any pain, states that she did have some pain on the left upper extremity, but other than that, has no complaints. She denies losing consciousness and states that she tripped over her own feet. She never hit her head and her only complaint is her left arm findings. PAST MEDICAL HISTORY: Heart failure, aortic stenosis, severe mitral regurg, coronary artery disease, history of cerebral vascular accident, breast cancer, colon cancer and is currently in AFib on Coumadin. PAST SURGICAL HISTORY: Nothing recent, but remote history is of mastectomy and colectomy, the dates of which she is unclear SOCIAL HISTORY: Lives alone. Does have a son in the area. She denies alcohol and illicit drug use. FAMILY HISTORY: Noncontributory. REVIEW OF SYSTEMS: A full 10-point review was performed and, unless explicitly stated above, is otherwise negative. PHYSICAL EXAM: VITAL SIGNS: Blood pressure elevated at 182/111 heart rate 93, temperature 36.4. Her O2 saturations are 99% on room air and her respirations are normal at 20. CONSTITUTIONAL: She is in no apparent distress. She appears comfortable. EYES: Her pupils are equal, round, and reactive to light and accommodation. She has anicteric sclera and her extraocular movements are intact. EARS, NOSE, MOUTH AND THROAT: She has dry mucous membranes. Her hearing appears normal. Her ears have no signs of trauma and/or drainage. She has no mucosal ulcers. CARDIOVASCULAR: She is hypertensive. She is irregularly, irregular. She does have significant systolic and diastolic murmurs. RESPIRATORY: She is distant at the bases. She has no respiratory distress. No rales or rhonchi. She has no crepitus and no chest tenderness. GASTROINTESTINAL: Normal bowel sounds. ABDOMEN: Soft, nondistended, nontender. SKIN: Warm, normal color. She has a significant degloving injury in the left upper extremity down to the muscle, which was repaired in the operating room. There was an area where the epidermis was completely degloved and denuded, measuring approximately 2 x 2 cm. MUSCULOSKELETAL: Full muscle strength. No muscle tenderness. Normal range of motion. No neurovascular injury to the left upper extremity. NEUROLOGIC: She is alert and oriented x3. Cranial nerves 2-12 are intact. She has no weakness, no numbness and no asterixis. PSYCH: She is interacting appropriately. She is not anxious. She is not encephalopathic. LYMPH, HEME and IMMUNOLOGIC: She has no cervical, groin, or supraclavicular lymphadenopathy. LABORATORY DATA: White count normal at 4, H and H stable at 14 and 41. Chemistries are remarkable for hyponatremia at 124 and hypochloremia at 92. The rest is unremarkable. Coags, elevated INR at 2.69. IMAGING: The patient in the emergency department had a head CT and plain films of both her forearm and chest. Head CT was negative for any trauma. Plain films were negative for any acute fracture. ASSESSMENT AND PLAN: An 87-year-old female, multiple medical problems, in atrial fibrillation on Coumadin, status post mechanical fall with left arm degloving injury. The patient will be subsequently admitted to the medical service, which I feel is appropriate, given her multiple medical comorbidities, and her active hyponatremia. The trauma service will consult and aid in management of her left upper extremity injury. We will have wound care see the patient and aid as well. The area of denudation is small. We will continue to watch it. It may grow over time as some of that degloved epidermis may slough. She may eventually need a skin graft if healthy enough to undergo that procedure, but I do feel that with good wound care she will heal this without incident. She has no neurovascular deficits at this point in time. I discussed this with the patient, she seems to understand the above treatment care plan. /[id number]/MODL MTDD
[2017-07-04] MEDS ORDERED: ONDANSETRON DISINTEGRATING 4 MG TAB PO PRN (09:47)
[2017-07-04] MEDS ORDERED: ONDANSETRON 4 MG/2 ML VIAL IVP PRN (09:47)
[2017-07-04] MEDS ORDERED: oxyCODONE IR 5 MG TAB PO PRN (09:47)
[2017-07-04] MEDS ORDERED: amLODIPine BESYLATE 5 MG TAB PO PRN (10:07)
--- NOTE | 2017-07-04 10:24 | GHP ---
[f rep st] HISTORY AND PHYSICAL DATE OF ADMISSION: 07/04/2017 CHIEF COMPLAINT: Fall. HISTORY OF PRESENT ILLNESS: This is an 87-year-old female, lives by herself with multiple medical pr oblems, who fell this morning. This occurred when she went into the bathroom. She is not very clear exactly on her history, though it seems as though it was a mechanical fall. She denied syncope, pre ceding chest pain, palpitations, or shortness of breath. She is not sure exactly why she fell, thoug h she does say that she just lost her balance. She does have a history of severe aortic stenosis as well as mitral regurgitation. I have spoken with her son. She is currently living independently in a house, but he does not feel t hat this is appropriate. She has been resistant to accepting this in the past. PAST MEDICAL/SURGICAL HISTORY: 1. Severe aortic stenosis, moderate to severe mitral regurgitation. 2. History of stroke and severe carotid stenosis on Coumadin. 3. History of breast cancer. Bilateral mastectomy. 4. History of colon cancer. 5. Atrial fibrillation on Coumadin. 6. Esophageal stenosis. 7. Hypothyroidism. 8. Spinal stenosis. 9. Hypertension. 10. Right mastectomy. 11. Hysterectomy. MEDICATIONS: Please see medication reconciliation. ALLERGIES: No known drug allergies. SOCIAL HISTORY: She lives independently alone. Her son is very involved in her care; however, he li ves in [place]. FAMILY HISTORY: Parents are . REVIEW OF SYSTEMS: A 10-point review of systems is conducted and is negative except per HPI. PHYSICAL EXAMINATION: VITAL SIGNS: Blood pressure 156/82, heart rate 86, respiration rate 16, satur ating 93% on room air. Temperature is 36.6. GENERAL: The patient is a pleasant female who is resti ng comfortably in bed. No acute distress. HEENT: Normocephalic, atraumatic. CARDIOVASCULAR: She i s irregularly irregular. She has very prominent 3/6 systolic murmur. PULMONARY: Lungs clear to aus cultation bilaterally. ABDOMEN: Soft, nontender, nondistended. SKIN: No rash. : No Vance. NE UROLOGIC: Hard of hearing. She appears to be alert and oriented though communication is somewhat di fficult. PSYCHIATRIC: Normal mood and affect. EXTREMITIES: Her left upper extremity is bandaged t ightly with Bi bandage. She does have significant bright red blood which has saturated numerous gau ze pads. LABORATORY DATA: CBC is normal. INR is 2.69. Sodium is 124. Troponin is negative. DATA: 1. I reviewed her chart. 2. I reviewed her consult note from Dr. Lima as well as Dr. Black. 3. I reviewed the initial impression on her head CT which was negative. 4. I personally viewed and interpreted her electrocardiogram that shows sinus rhythm. She has slow R-wave progression. She has left axis deviation. Compared to her previous from February, her T-waves ar e now upright. They have been upright in the past. 5. Chest x-ray, which I personally viewed and interpreted, shows likely mild congestive heart failur e not significantly changed from her previous. IMPRESSION/PLAN: An 87-year-old female with fall and left arm degloving injury. 1. Fall: Likely mechanical though history is very difficult, she certainly has reasons for syncope. Initial troponin is negative, chest x-ray, does not look more volume overloaded than prior. We maddie l check echocardiogram, trend her troponins, monitor on telemetry. 2. Left arm degloving injury: Seen by surgery, nothing acutely warranted. She does continue to ble ed quite a lot. She may need FFP given her coagulopathy though I am hesitant to give her this given her valvular heart disease. We have rewrapped this, will follow her exam closely as well as ongoing bleeding. If she needs if FFP, would follow this with IV Lasix. 3. Valvular heart disease: Does not appear to be any more decompensated than previously. As above, recheck echocardiogram. Low threshold to involve Cardiology. They will not consult at this point. 4. Atrial fibrillation: She is currently on Coumadin. We will need to hold this for the time being . She is also on aspirin which we will also need to hold. She is currently in sinus and rate contro lled. 5. History of cerebrovascular accident: She is on Coumadin. 6. Social: She is currently living independently, we will need to get Case Management to see her. Does not seem like a safe situation given her comorbidities and her mental status. 7. Hyponatremia: This is slightly lower than normal. Will follow up tomorrow. She has chronic lik andrew SIADH. 8. I discussed all the above with her son on the phone, Naren. 9. Code status is do not resuscitate. /[id number]/MODL
[2017-07-04] MEDS: BENAZEPRIL HCL 10 MG TAB PO SCH ×2 (11:02→20:04)
--- NOTE | 2017-07-04 11:11 | PDMN ---
Medical Necessity Medical necessity: C/M review: est. 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
[2017-07-04] MEDS: ACETAMINOPHEN 325 MG TAB PO PRN ×2 (12:19→20:04)
--- NOTE | 2017-07-04 17:28 | ECHO ---
[email or web address] [address] Main: [phone] Fax: Transthoracic Echocardiogram Name: KAVON PALOMINO MR#: [id number] Study Date: 07/04/2017 Study Time: 12:58 PM Date of : 1930 Age: 87 year(s) Height: 157.5 cm (62 in.) Weight: 58.51 kg (129 lb.) BSA: 1.59 m2 Gender: Female Examination: Echo Indication: Murmur, Fall Image Quality: Contrast: Requested by: Jorge Reina BP: 145 mmHg/95 mmHg Heart Rate: Rhythm: Normal sinus rhythm Indication: Murmur, Fall Procedure Staff Health And Physical Education Teacher: Tony Perea Reading Physician: Elmer Zhang Requesting Provider: Conclusions: Mild concentric LV hypertrophy. Low normal left ventricular systolic function. The ejection fraction is estimated to be 50-55 %. Diastolic dysfunction is present. . The left atrium is moderately to severely dilated. The right atrium is mildly to moderately dilated. Moderate mitral annular calcification. Mild mitral valve regurgitation is present. Severe aortic valve calcification is present. The Ao Mean PG is 41 mmHg with a Max Pg of 68 mmHg Severe calcific aortic valve stenosis. Measurements: Chambers Valvular Assessment AV/MV Valvular Assessment TV/PV Normal Normal Normal Name Value Range Name Value Range Name Value Range IVSd (2D): 0.9 cm (0.6 cm-1.1 AV Vmax: 4.10 m/s (1 m/s-1.7 TR Vmax: 2.60 mm/s ( - ) cm) m/s) TR PGmax: 27 mmHg ( - ) LVDd (2D): 4.8 cm (3.9 cm-5.3 AV maxP mmHg ( - ) syst. PAP: 32 mmHg ( - ) cm) AV meanP mmHg ( - ) PV Vmax: 0.92 m/s (0.6 m/s-0.9 LVDs (2D): 3.6 cm (2.1 cm-4 LVOT Vmax: 0.56 m/s (0.7 m/s-1.1 m/s) cm) m/s) PV PGmax: 3 mmHg ( - ) LVPWd (2D): 1.2 cm ( - ) ALYSSIA (Vmax): 0.4 cm2 ( - ) LVPWs (2D) 3.7 cm ( - ) ALYSSIA (VTI): 0.4 cm ( - ) LVOTd 1.9 cm 1.9 cm mm MV E Vmax: 1.17 m/s ( - ) LVEF (BP): 50 % (>=55 %) MV A Vmax: 0.78 m/s ( - ) EF Range: 50-55 % MV E/A: 1.50 ( - ) MV maxP mmHg ( - ) MV meanP mmHg ( - ) MV PHT: 0.045 s ( - ) Patient: KAVON PALOMINO Study Date: 07/04/2017 Page 1 of 2 12:58 PM MVA (Vmax): 1.0 m/s ( - ) MVA (PHT): 4.9 s ( - ) MVA (2D): 4.9 cm2 ( - ) Continued Measurements: Chambers Valvular Assessment AV/MV Valvular Assessment TV/PV Name Value Name Value Name Value LADs Lon.6 cm MV Annulus: 2.9 cm CVP (est.): 5 mmHg LA Area: 23.4 cm2 MV DecTime: 229 m/s MV VTI: 40.90 cm MR ERO: 0.1 cm2 MR PISA radius: 6 mm MR Reg. Volume: 23 ml MR Reg. Fraction: 9 % Findings: Left Ventricle: Normal size left ventricle. Mild concentric LV hypertrophy. Low normal left ventricular systolic function. The ejection fraction is estimated to be 50-55 %. No regional wall motion abnormality. Diastolic dysfunction is present. . Right Ventricle: Normal size right ventricle. Normal RV function. Left Atrium: The left atrium is moderately to severely dilated. LA index is 49 ml/m2 Right Atrium: The right atrium is mildly to moderately dilated. Mitral Valve: Moderate mitral annular calcification. Mild mitral valve regurgitation is present. No mitral stenosis is present. Aortic Valve: Severe aortic valve calcification is present. The Ao Mean PG is 41 mmHg with a Max Pg of 68 mmHg Severe calcific aortic valve stenosis. Tricuspid Valve: The tricuspid valve appears normal. Mild tricuspid regurgitation is present. The pulmonary artery pressure is normal. Pulmonic Valve: The pulmonic valve is normal in appearance and function. Aorta: The aorta is normal. Pericardium: No pericardial effusion. (No Signature Object) Patient: KAVON PALOMINO Study Date: 07/04/2017 Page 2 of 2 12:58 PM [id number]
[2017-07-04] MEDS: CYCLOSPORINE 0.05% 1 EACH BOX EACHEYE SCH (20:03)
[2017-07-04] MEDS: DOCUSATE SODIUM 100 MG CAP PO SCH (20:05)
[2017-07-04] MEDS: ATORVASTATIN CALCIUM 10 MG TAB PO SCH (20:05)
[2017-07-05 05:35] LABS: % IMMATURE GRANULYOCYTES 0.2 % (0.0-1.1); ABSOLUTE IMMATURE GRANULOCYTES 0.01 10^3/uL (0.00-0.10); ADD DIFF? NO; ADD MORPH? NO; ADD SCAN? NO; ATYPICAL LYMPHOCYTE FLAG 10 (0-99); FRAGMENT RBC FLAG 0 (0-99); HEMATOCRIT 32.7 % (38.0-47.0); HEMOGLOBIN 11.4 g/dL (12.6-16.3); LEFT SHIFT FLG 0 (0-99); LIPEMIA HEMOLYSIS FLAG 90 (0-99); MEAN CELL HEMOGLOBIN 31.1 pg (27.9-34.1); MEAN CELL HEMOGLOBIN CONCENTR. 34.9 g/dL (32.4-36.7); MEAN CELL VOLUME 89.1 fL (81.5-99.8); MEAN PLATELET VOLUME 10.4 fL (8.7-11.7); PLATELET CLUMPS FLAG 0 (0-99); PLATELET COUNT 168 10^3/uL (150-400); RED BLOOD CELL COUNT 3.67 10^6/uL (4.18-5.33); RED CELL DISTRIBUTION WIDTH 13.2 % (11.5-15.2)
[2017-07-05 05:48] LABS: ANION GAP 4 mEq/L (8-16); CALCIUM 8.4 mg/dL (8.5-10.4); CARBON DIOXIDE 21 mEq/l (22-31); CHLORIDE 101 mEq/L (97-110); CREATININE 0.7 mg/dL (0.6-1.0); GLOMERULAR FILTRATION RATE > 60; GLUCOSE 75 mg/dL (70-100); POTASSIUM 4.2 mEq/L (3.5-5.2); SODIUM 126 mEq/L (134-144)
[2017-07-05] MEDS: PANTOPRAZOLE SODIUM 40 MG TAB PO SCH (06:36)
[2017-07-05 06:47] LABS: INR 2.41 (0.83-1.16); PROTIME(PATIENT) 26.5 SEC (12.0-15.0)
--- NOTE | 2017-07-05 09:26 | SOAPPROG ---
SOAP Progress Note Assessment/Plan: Assessment: 87 FEMALE SEEN TODAY AND YESTERDAY SP FALL WITH DEGLOVE INJURY TO LEFT ARM STABLE/ SOME OOZING ON DRESING/ INR 2,[address] AND CXR OK Plan:DRESSING CHANGE IN AM 07/05/17 09:23 Objective: Vital Signs Temp Pulse Resp BP Pulse Ox 36.8 C 79 20 120/70 95 07/05/17 04:00 07/05/17 04:00 07/05/17 04:00 07/05/17 04:00 07/05/17 04:00 Laboratory Results 07/05/17 03:43 07/05/17 03:43 07/04/17 07/05/17 07/06/17 05:59 05:59 05:59 Intake Total 780 Output Total 150 Balance 630 PT 26.5 SEC (12.0-15.0) H 07/05/17 06:23 INR 2.41 (0.83-1.16) H 07/05/17 06:23 ICD10 Worksheet Patient Problems: Problems Problem Status Onset Arm laceration Acute Fall Acute Hematoma of arm Acute Hyponatremia Acute Acute exacerbation of congestive heart failure Acute Non-STEMI (non-ST elevated myocardial infarction) Acute Wrist fracture, left Acute
[2017-07-05] MEDS ORDERED: PHYTONADIONE 2.5 MG/2.5 ML ORAL UDL PO ONE (10:44)
--- NOTE | 2017-07-05 10:57 | HOSPPROG ---
Hospitalist Progress Note Assessment/Plan: # fall - difficult history; seems mechanical at this point but her valvular disease is concerning # L arm degloving injury - still oozing, INR 2.4; Will continue to monitor on warfarin given her a-fib, VHD - will give a small dose of vit K with her new anemia; hold warfarin for now # ABLA - follow daily for now # atrial fibrillation - rate controlled, anti-coagulated (holding warf, small dose vit k) # hyponatremia, slightly below baseline - baseline Na upper 120's; SIADH - follow, fluid restrict # mild MR, severe # hx CVA # htn - amlodipine, be # DNR # dispo - Overall picture more of FTT than anything else. At this point, she appears unsafe at her current living situation. Her son Naren will come in town on . Subjective: sitting in chair - wants to go back to bed Objective: Vital Signs Temp Pulse Resp BP Pulse Ox 36.8 C 79 20 120/70 95 07/05/17 04:00 07/05/17 04:00 07/05/17 04:00 07/05/17 04:00 07/05/17 04:00 Laboratory Results 07/05/17 03:43 07/05/17 03:43 07/04/17 07/05/17 07/06/17 05:59 05:59 05:59 Intake Total 780 Output Total 150 Balance 630 PT 26.5 SEC (12.0-15.0) H 07/05/17 06:23 INR 2.41 (0.83-1.16) H 07/05/17 06:23 echo reviewed tele reviewed - Physical Exam Constitutional: chronically ill appearing Cardiovascular: regular rate and rhythym, systolic murmur Respiratory: no respiratory distress, no rales or rhonchi, clear to auscultation Gastrointestinal: normoactive bowel sounds, soft, non-tender abdomen, no palpable masses Musculoskeletal: other (L arm wrapped with mild blood oozing) ICD10 Worksheet Patient Problems: Problems Problem Status Onset Wrist fracture, left Acute Fall Acute Non-STEMI (non-ST elevated myocardial infarction) Acute Acute exacerbation of congestive heart failure Acute Arm laceration Acute Hematoma of arm Acute Hyponatremia Acute
[2017-07-05] MEDS: LEVOTHYROXINE 50 MCG TAB PO SCH (11:29)
[2017-07-05] MEDS: BENAZEPRIL HCL 10 MG TAB PO SCH ×2 (11:29→21:12)
[2017-07-05] MEDS: DOCUSATE SODIUM 100 MG CAP PO SCH ×2 (11:29→21:12)
[2017-07-05] MEDS: FUROSEMIDE 20 MG TAB PO SCH (11:29)
[2017-07-05] MEDS: CYCLOSPORINE 0.05% 1 EACH BOX EACHEYE SCH ×2 (12:06→21:13)
--- NOTE | 2017-07-05 14:44 | WOCRNPDOC ---
WOCRN Advanced Assessment Note - Skin Integrity Problem, Advanced Assess Left Arm Laceration Dressing Type: ABD Pad, Bi Bandage, Gauze Dressing Description: Saturated Closure Description: Sutures (intact) Exudate Amount: Excessive Exudate Color: Red Exudate Characteristic(s): Sanguinous Integumentary Issue Intervention: Dressing Changed (Applied Surgicel x two pieces, Mepilex Transfer foam, ABD, BI, Ice pack) Janine Wound Tissue: Intact Janine Wound Swelling: Mild Site Odor: None Site Measurement - Head-to-Toe Length X Width X Depth (cm): 12 cm l Skin Integrity Problem Comment: Saturated dressings were carefully removed. Injury at lateral left elbow/upper arm, described on consult request as a "degloving" injury, now presents with intact sutured closure, resembling a laceration. It was bleeding continuously through the sutures, at the proximal segment of the injury. The area was swabbed clean using sterile NS and dry gauze. Two pieces of Surgicel were applied to the injury at the proximal end, which slowed the bleeding. JAYESH Garcia measured the arm circumference for reference: 26 cm, and marked the location for monitoring for swelling and signs of hematoma development. A half sheet of Transfer foam was placed protectively over the sutures. An ABD was placed over the Transfer sheet, and secured with an BI wrap. An ice pack was then placed. Nursing is to monitor for further bleeding and any swelling with sign of hematoma development.
[2017-07-05] MEDS ORDERED: FUROSEMIDE 40 MG/4 ML VIAL IVP ONE ×2 (14:51→18:15)
--- NOTE | 2017-07-05 16:36 | ASMTCMCOM ---
CM Note CM Note Notes: Reviewed chart re: d/c poc, pt's progress. Pt admitted s/p a fall w/ hyponatremia and a left arm degloving injury. Pt has a hx of severe aortic stenosis, mod MVR, CVA, severe carotid stenosis, breast ca, bilat mastectomy, colon ca, afib. Pt currently lives alone. Her son is very involved in her care, but lives in [place]. He is expected to arrive on Thu07/08/17. Pt is unsafe to return to her current living arrangement and has previously been resistant to SNF. PT/OT rec SNF. CM will cont to follow for placement assistance. Date Signed: 07/05/2017 04:35 PM Electronically Signed By:Antonette Le RN
[2017-07-05] MEDS: ATORVASTATIN CALCIUM 10 MG TAB PO SCH (21:13)
[2017-07-06 05:19] LABS: % IMMATURE GRANULYOCYTES 0.3 % (0.0-1.1); ABSOLUTE IMMATURE GRANULOCYTES 0.02 10^3/uL (0.00-0.10); ADD DIFF? NO; ADD MORPH? NO; ADD SCAN? NO; ATYPICAL LYMPHOCYTE FLAG 20 (0-99); FRAGMENT RBC FLAG 0 (0-99); HEMATOCRIT 31.7 % (38.0-47.0); HEMOGLOBIN 11.3 g/dL (12.6-16.3); LEFT SHIFT FLG 0 (0-99); LIPEMIA HEMOLYSIS FLAG 90 (0-99); MEAN CELL HEMOGLOBIN 31.5 pg (27.9-34.1); MEAN CELL HEMOGLOBIN CONCENTR. 35.6 g/dL (32.4-36.7); MEAN CELL VOLUME 88.3 fL (81.5-99.8); MEAN PLATELET VOLUME 10.5 fL (8.7-11.7); PLATELET CLUMPS FLAG 0 (0-99); PLATELET COUNT 168 10^3/uL (150-400); RED BLOOD CELL COUNT 3.59 10^6/uL (4.18-5.33); RED CELL DISTRIBUTION WIDTH 13.3 % (11.5-15.2)
[2017-07-06 05:26] LABS: INR 1.34 (0.83-1.16); PROTIME(PATIENT) 16.6 SEC (12.0-15.0)
[2017-07-06 05:44] LABS: ANION GAP 8 mEq/L (8-16); CALCIUM 8.6 mg/dL (8.5-10.4); CARBON DIOXIDE 21 mEq/l (22-31); CHLORIDE 99 mEq/L (97-110); CREATININE 0.7 mg/dL (0.6-1.0); GLOMERULAR FILTRATION RATE > 60; GLUCOSE 80 mg/dL (70-100); POTASSIUM 4.3 mEq/L (3.5-5.2); SODIUM 128 mEq/L (134-144)
[2017-07-06] MEDS: PANTOPRAZOLE SODIUM 40 MG TAB PO SCH (06:05)
[2017-07-06] MEDS: LEVOTHYROXINE 50 MCG TAB PO SCH (06:05)
[2017-07-06] MEDS: FUROSEMIDE 20 MG TAB PO SCH (08:40)
[2017-07-06] MEDS: CYCLOSPORINE 0.05% 1 EACH BOX EACHEYE SCH ×2 (08:40→20:29)
[2017-07-06] MEDS: DOCUSATE SODIUM 100 MG CAP PO SCH ×2 (08:40→20:26)
[2017-07-06] MEDS: BENAZEPRIL HCL 10 MG TAB PO SCH ×2 (08:40→20:26)
--- NOTE | 2017-07-06 11:03 | TRAUMAPN ---
Assessment/Plan: 87 yo F s/p fall with degloving injury to left elbow INR normalizing. 1.34 today. No oozing appreciated with dressing change today. Cont dressing changes. Used mepilex transfer and kerlix today Cont pain control Appreciate hospitalists. S: No complaints. Pain controlled. O: Afebrile Lying in bed, NAD MMM Left elbow wound c/d/i with suture in place. Minimal bloody discharge on dressing. No oozing appreciated. Objective: Vital Signs Temp Pulse Resp BP Pulse Ox 36.7 C 90 20 127/81 H 97 07/06/17 07:06 07/06/17 07:06 07/06/17 07:06 07/06/17 07:06 07/06/17 07:06 Laboratory Results 07/06/17 03:23 07/06/17 03:23 07/05/17 07/06/17 07/07/17 05:59 05:59 05:59 Intake Total 780 650 Output Total 150 800 Balance 630 -150 PT 16.6 SEC (12.0-15.0) H D 07/06/17 03:23 INR 1.34 (0.83-1.16) H 07/06/17 03:23
--- NOTE | 2017-07-06 11:57 | ASMTCMCOM ---
CM Note CM Note Notes: Spoke w/RN re d/c needs. Spoke w/son Naren ([facility]) [phone]. Son plans to come to [place] on Thursday from [place]. Discussed d/c needs w/Naren. Naren in agreement that higher level of care is required at this time. Discussed possible SNFs in [place]. Naren requested referral only to [facility], has toured other facilities in the past and feels [facility] is the best fit. Naren reports plan to place pt [facility] after d/c from SNF rehab. Plans to tour facilities while here on upcoming trip and make necessary arrangements. Faxed referral to [facility], awaiting placement decision. Case Management to follow. Date Signed: 07/06/2017 11:56 AM Electronically Signed By:Karishma Zapata RN
--- NOTE | 2017-07-06 15:43 | HOSPPROG ---
Hospitalist Progress Note Assessment/Plan: # fall - difficult history; seems mechanical at this point but her valvular disease is concerning # L arm degloving injury - not oozing currently; appreciate trauma assistance # ABLA - stable # coagulopathy - reversed yesterday with vit k 1.25mg and 1U FFP # atrial fibrillation - rate controlled - warfarin was reversed as above; restart today with no bridge # hyponatremia, essentially at baseline; SIADH - fluid restrict # mild MR, severe # hx CVA # htn - amlodipine, benazepril # DNR # dispo - Overall picture more of FTT than anything else. At this point, she appears unsafe at her current living situation. Her son Naren will come in town on - probably will need to wait until he arrives to decide on disposition. Subjective: her arm is uncomfortable; it has not been oozing today Objective: Vital Signs Temp Pulse Resp BP Pulse Ox 36.6 C 105 H 20 151/99 H 96 07/06/17 15:34 07/06/17 15:34 07/06/17 15:34 07/06/17 15:34 07/06/17 15:34 Laboratory Results 07/06/17 03:23 07/06/17 03:23 07/05/17 07/06/17 07/07/17 05:59 05:59 05:59 Intake Total 780 650 Output Total 150 800 100 Balance 630 -150 -100 PT 16.6 SEC (12.0-15.0) H D 07/06/17 03:23 INR 1.34 (0.83-1.16) H 07/06/17 03:23 - Physical Exam Constitutional: no apparent distress, appears nourished Cardiovascular: regular rate and rhythym, systolic murmur Respiratory: no respiratory distress, no rales or rhonchi, clear to auscultation Gastrointestinal: normoactive bowel sounds, soft, non-tender abdomen, no palpable masses ICD10 Worksheet Patient Problems: Problems Problem Status Onset Wrist fracture, left Acute Fall Acute Non-STEMI (non-ST elevated myocardial infarction) Acute Acute exacerbation of congestive heart failure Acute Arm laceration Acute Hematoma of arm Acute Hyponatremia Acute
[2017-07-06] MEDS ORDERED: WARFARIN SODIUM 5 MG TAB PO SCH (16:00)
[2017-07-06] MEDS: ATORVASTATIN CALCIUM 10 MG TAB PO SCH (20:26)
[2017-07-07 04:13] LABS: % IMMATURE GRANULYOCYTES 0.2 % (0.0-1.1); ABSOLUTE IMMATURE GRANULOCYTES 0.01 10^3/uL (0.00-0.10); ADD DIFF? NO; ADD MORPH? NO; ADD SCAN? NO; ATYPICAL LYMPHOCYTE FLAG 0 (0-99); FRAGMENT RBC FLAG 0 (0-99); HEMATOCRIT 30.3 % (38.0-47.0); HEMOGLOBIN 10.6 g/dL (12.6-16.3); LEFT SHIFT FLG 0 (0-99); LIPEMIA HEMOLYSIS FLAG 90 (0-99); MEAN CELL HEMOGLOBIN 31.6 pg (27.9-34.1); MEAN CELL VOLUME 90.4 fL (81.5-99.8); MEAN PLATELET VOLUME 10.2 fL (8.7-11.7); PLATELET CLUMPS FLAG 0 (0-99); PLATELET COUNT 162 10^3/uL (150-400); RED BLOOD CELL COUNT 3.35 10^6/uL (4.18-5.33); RED CELL DISTRIBUTION WIDTH 13.5 % (11.5-15.2)
[2017-07-07 04:20] LABS: INR 1.22 (0.83-1.16); PROTIME(PATIENT) 15.4 SEC (12.0-15.0)
[2017-07-07 04:26] LABS: ANION GAP 6 mEq/L (8-16); CALCIUM 8.3 mg/dL (8.5-10.4); CARBON DIOXIDE 22 mEq/l (22-31); CHLORIDE 99 mEq/L (97-110); CREATININE 0.6 mg/dL (0.6-1.0); GLOMERULAR FILTRATION RATE > 60; GLUCOSE 84 mg/dL (70-100); POTASSIUM 4.5 mEq/L (3.5-5.2); SODIUM 127 mEq/L (134-144)
[2017-07-07] MEDS: PANTOPRAZOLE SODIUM 40 MG TAB PO SCH (06:28)
[2017-07-07] MEDS: LEVOTHYROXINE 50 MCG TAB PO SCH (06:28)
[2017-07-07] MEDS: DOCUSATE SODIUM 100 MG CAP PO SCH (08:38)
[2017-07-07] MEDS: BENAZEPRIL HCL 10 MG TAB PO SCH (08:38)
[2017-07-07] MEDS: FUROSEMIDE 20 MG TAB PO SCH (08:39)
[2017-07-07] MEDS: CYCLOSPORINE 0.05% 1 EACH BOX EACHEYE SCH (08:40)
--- NOTE | 2017-07-07 10:59 | PDIAF ---
- Diagnosis Code Status: Do Not Resuscitate - Medication Management Discharge Medications: Medications to Continue on Transfer Esomeprazole Mag Trihydrate [Nexium] 40 mg PO DAILY@0600 08/29/16 [Last Taken Unknown] Levothyroxine [Synthroid 50 mcg (*)] 50 mcg PO DAILY06 08/29/16 [Last Taken Unknown] amLODIPine BESYLATE [Norvasc 5 mg (*)] 5 mg PO DAILY PRN 08/29/16 [Last Taken Unknown] Atorvastatin Calcium [Lipitor 10 mg (*)] 10 mg PO HS 01/09/17 [Last Taken Unknown] Warfarin Sodium [Coumadin 5MG (*)] 5 mg PO MO@1600 01/09/17 [Last Taken 03/13/17 ] Benazepril HCl [Lotensin (*)] 10 mg PO BID 01/29/17 [Last Taken Unknown] Calcium Carbonate/Vitamin D3 [CALCIUM 600 + VIT D TABLET] 1 each PO BIDMEAL [Last Taken Unknown] Docusate Sodium [Colace 100 MG (*)] 200 mg PO BID 03/14/17 [Last Taken Unknown] Multivitamins [Multivitamin (*)] 1 each PO DAILY 03/14/17 [Last Taken Unknown] clonIDINE [Catapres (*)] 0.1 mg PO BID PRN 03/14/17 [Last Taken Unknown] Furosemide [Lasix 20 MG (*)] 20 mg PO DAILY #30 tab 03/15/17 [Last Taken Unknown ] Warfarin Sodium [Coumadin 5MG (*)] 10 mg PO SUTUWETHFRSA@1600 07/04/17 [Last Taken 07/03/17] cycloSPORINE 0.05% [Restasis Opht Drops(*)] 1 drop EACHEYE BID 07/04/17 [Last Taken Unknown] Discharge Medications: Refer to the Discharge Home Medication list for PRN reason. - Orders Services needed: Registered Nurse, Certified Coordinate Measuring Machine Programmer, Physical Therapy, Occupational Therapy Diet Recommendation: no restrictions on diet - Labs/Radiology PT/INR Date: 07/09/17 (q3 days until stable, goal INR 2-3) - Follow Up Care Current Providers and Referrals: Patient,NotPresent [Unknown] - As per Instructions Luis Fernando Ferreira MD [Medical Doctor] - (f/u in 10 days)
--- NOTE | 2017-07-07 10:59 | PDDCSUM ---
Discharge Summary Discharge Summary: Dates of service 07/04-07/07/17 Consultations: trauma Procedures performed: echo, head ct Discharge diagnosis: # fall - difficult history; seems mechanical at this point but her valvular disease is concerning # L arm degloving injury - not oozing currently; appreciate trauma assistance # ABLA - stable # coagulopathy - reversed with vit k 1.25mg and 1U FFP # atrial fibrillation - rate controlled - warfarin was reversed as above; restarted with no bridge # hyponatremia, essentially at baseline; 2/2 SIADH - fluid restrict # mild MR, severe # hx CVA # htn - amlodipine, benazepril # DNR DC to SNF f/u with general surgery in 2 weeks > 35 min spent in dc of patient more than half in coordination of care
[2017-07-07 11:14] VITALS: BP 121/79; PULSE 79; RESP 18; TEMP 98.3; O2SAT 98
--- NOTE | 2017-07-07 12:02 | ASMTCMCOM ---
CM Note CM Note Notes: 07/07/2017 Case Management Note Notified lisset Sneed [facility], per MD pt medical ready to d/c today. Naren in agreement w/ moving pt to [facility] today. Notified [facility] of d/c. [facility] arranged wheelchair transport through [facility]. Faxed final orders to [facility]. Notified RN to call report to [phone]. Date Signed: 07/07/2017 12:01 PM Electronically Signed By:Karishma Zapata RN
--- NOTE | 2017-07-07 13:58 | ASDISCHSUM ---
Discharge Information Plan Status:SNF Medically Cleared to Leave:07/07/2017 Discharge Date:07/07/2017 01:00 PM CM D/C Disposition:Assisted Facility ADT D/C Disposition:Assisted Facility Projected Discharge Date:07/08/2017 11:00 AM Transportation at D/C:Wheelchair Van Discharge Delay Reason: Follow-Up Date:07/08/2017 11:00 AM Discharge Slot: Final Diagnosis: Placement Information Referral Type:*Care Home/SNF Referral ID:[id number] Provider Name:[facility] Address 1:[address] Address 2: City:[place] Selection Factors: State:[place] Patient Contact Information Contact Name:CHRIS Relationship:Son Address:[address] Work Phone: [facility]:[place] Alternate Phone: [facility]/Zip Code:[place] [address] Email: Financial Information Financial Class: Primary Plan Desc:MEDICARE INPATIENT Primary Plan Number:[id number] Secondary Plan Desc:[facility] Secondary Plan Number:[id number] Assessment Information [facility] CM Progress Note CM Note CM Note Notes: Reviewed chart re: d/c poc, pt's progress. Pt admitted s/p a fall w/ hyponatremia and a left arm degloving injury. Pt has a hx of severe aortic stenosis, mod MVR, CVA, severe carotid stenosis, breast ca, bilat mastectomy, colon ca, afib. Pt currently lives alone. Her son is very involved in her care, but lives in [place]. He is expected to arrive on Thu07/08/17. Pt is unsafe to return to her current living arrangement and has previously been resistant to SNF. PT/OT rec SNF. CM will cont to follow for placement assistance. Date Signed: 07/05/2017 04:35 PM Electronically Signed By:Antonette Le RN [facility] CM Progress Note CM Note CM Note Notes: Spoke w/RN re d/c needs. Spoke w/lisset Sneed ([facility]) [phone]. Son plans to come to [place] on Thursday from [place]. Discussed d/c needs w/Naren. Naren in agreement that higher level of care is required at this time. Discussed possible SNFs in [place]. Naren requested referral only to [facility], has toured other facilities in the past and feels [facility] is the best fit. Naren reports plan to place pt in [facility] after d/c from SNF rehab. Plans to tour facilities while here on upcoming trip and make necessary arrangements. Faxed referral to [facility], awaiting placement decision. Case Management to follow. Date Signed: 07/06/2017 11:56 AM Electronically Signed By:Karishma Zapata RN [facility] CM Progress Note CM Note CM Note Notes: 07/07/2017 Case Management Note Notified lisset Sneed [facility], per pt medical ready to d/c today. Naren in agreement w/ li pt to [facility] today. Notified [facility] of d/c. [facility] arranged wheelchair transport through [facility]. Faxed final orders to [facility]. Notified RN to call report to [phone]. Date Signed: 07/07/2017 12:01 PM Electronically Signed By:Karishma Zapata RN Intervention Information
[2017-07-07] MEDS ORDERED: WARFARIN SODIUM 5 MG TAB PO SCH (16:00)
== END 2017-07-07 13:00 | DRG 605 ==
LOC: EDUNIT# → F2W 06:40
PROVIDERS: ADMIT Family Medicine; ATTEND Student in an Organized Health Care Education/Training Program
PROC: 0HQEXZZ Repair Left Lower Arm Skin, External Approach (ICD-10-PCS; principal; 2017-07-04)
PROC: 30233L1 Transfusion of Nonautologous Fresh Plasma into Peripheral Vein, Percutaneous Approach (ICD-10-PCS; 2017-07-05)
DX: S51.812A Laceration without foreign body of left forearm, initial encounter (principal); E87.1 Hypo-osmolality and hyponatremia; D62 Acute posthemorrhagic anemia; S40.022A Contusion of left upper arm, initial encounter; E03.9 Hypothyroidism, unspecified; I10 Essential (primary) hypertension; I48.91 Unspecified atrial fibrillation; W18.12XA Fall from or off toilet with subsequent striking against object, initial encounter; Y92.012 Bathroom of single-family (private) house as the place of occurrence of the external cause; Z86.73 Personal history of transient ischemic attack (TIA), and cerebral infarction without residual deficits; Z85.3 Personal history of malignant neoplasm of breast; Z79.01 Long term (current) use of anticoagulants; Z66 Do not resuscitate; I35.0 Nonrheumatic aortic (valve) stenosis; I34.0 Nonrheumatic mitral (valve) insufficiency
CPT/HCPCS: 92523-GN; 96365; 97116-GP; 97163-GP; 97165-GO; G8978-GP-CM; G8979-GP-CK; G8980-GP-CJ; G8987-GO-CL; G8988-GO-CK; G9168-GN-CL; G9169-GN-CK; J0690; J1940; P9016; P9017

== ENCOUNTER → 2017-08-10 | Outpatient (CLI) | payer OTHER | LOC: FIMAGING 07-29 08:36 | DX: S52.591A Other fractures of lower end of right radius, initial encounter for closed fracture (principal); S52.611A Displaced fracture of right ulna styloid process, initial encounter for closed fracture; M18.11 Unilateral primary osteoarthritis of first carpometacarpal joint, right hand; R60.0 Localized edema ==

== ENCOUNTER 2017-08-14 10:15 | Inpatient (IN) | payer OTHER ==
--- NOTE | 2017-08-14 10:57 | CPEKG ---
Heart Rate: 93 RR Interval: 645 P-R Interval: 144 QRSD Interval: 82 QT Interval: 358 QTC Interval: 446 P [place]: 39 QRS [place]: -34 T Wave [place]: 110 EKG Severity - ABNORMAL ECG - EKG Impression: SINUS RHYTHM EKG Impression: ATRIAL PREMATURE COMPLEX EKG Impression: LEFT AXIS DEVIATION EKG Impression: PROBABLE LEFT VENTRICULAR HYPERTROPHY EKG Impression: ANTERIOR Q WAVES, POSSIBLY DUE TO LVH Electronically Signed By: Hanna Dailey 14-Aug-2017 17:39:26
--- NOTE | 2017-08-14 11:00 | EDPHY ---
HPI/HX/ROS/PE/MDM Narrative: CHIEF COMPLAINT: HISTORY OF PRESENT ILLNESS: This patient is an anticoagulated (Coumadin) 87 year old female with history of stroke and congestive heart failure arriving with her son complaining of worsening shortness of breath. She has been living at [facility] since a fall one month ago during which she sustained a left arm tear and left wrist fractures. Her son at bedside states she was energetic and walking well following her discharge to [facility], and he travelled back to his home on the [facility]. Upon his return one week ago, he noted she had much less energy. Britany, she had an MRI for followup with her wtist, and started experiencing labored breathing with exertion. Yesterday, she had difficulty getting from her chair to the restroom, which is unusual for her. She is unable to speak much due to her labored breathing. Her son states her legs are increasingly swollen, and she has gained 17-18 pounds over the last month. She did have diarrhea this morning, but has not vomited. She had laboratory studies drawn yesterday, and was found to be hyponatremic at 124. Potassium 5. Her INR has been unstable since her admission to the alf as well. The patient endorses shortness of breath. She denies fever, chills, chest pain, palpitations, abdominal pain, vomiting, urinary complaints, headache, lightheadedness. REVIEW OF SYSTEMS: Aside from elements discussed in the HPI, a comprehensive 10-point review of systems was reviewed and is negative. PAST MEDICAL HISTORY: 1. Severe aortic stenosis, mitral regurgitation 2. History of stroke (Coumadin) 3. History of breast cancer s/p bilateral mastectomy 4. History of colon cancer 5. Atrial fibrillation (Coumadin) 6. Esophageal stenosis 7. Hypothyroidism 8. Spinal stenosis 9. Hypertension 10. Hysterectomy SOCIAL HISTORY: Son at bedside. Living at [facility]. . VITAL SIGNS: Reviewed by me GENERAL: Well-developed, well-nourished, resting comfortably in no respiratory distress. HEENT: Atraumatic. Eyes: No icterus, no injection. Mouth: moist mucous membranes. No erythema or lesions. Neck: supple with no adenopathy. LUNGS: Tachypneic. Diminished breath sounds at bases. Clear midfield. Wheezes in higher areas. CARDIAC: Regular rate and rhythm, no rubs, murmurs or gallops. ABDOMEN: Soft, nontender, nondistended, bowel sounds normal. BACK: No CVA tenderness. EXTREMITIES: 3+ pedal edema to knees. No trauma. Range of motion is normal throughout. NEURO: Alert and oriented, grossly nonfocal. SKIN: Warm and dry, no rash. PSYCHIATRIC: Normal mentation, no agitation. Portions of this note were transcribed by a medical reception specialist. I personally performed a history, physical exam, medical decision making, and confirmed accuracy of information the transcribed note. ED Course: 87 year old female presents with worsening shortness of breath and weakness. Exam reveals tachypnea, diminished breath sounds at bases and wheezes in upper areas. The patient has 3+ pedal edema to knees. Plan for chest x-ray, EKG, labs including CBC, BMP, Troponin, lactic acid, BNP, coag. Plan to administer 20mg IV Lasix for symptom relief. 11:20 Chest x-ray shows new bilateral pleural effusions. Sodium low at 121, troponin elevated at 0.040. INR elevated. Plan to admit for worsening congestive heart failure. 12:20 Spoke with hospitalist service. Dr. Alonzo accepts admission for dyspnea, pleural effusions, hyponatremia, elevated troponin, and CHF exacerbation. - Data Points Imaging Results: Imaging Impressions Chest X-Ray 08/14/17 11:01 Impression: Poor inspiration. New bilateral pleural effusions. Laboratory Results: Laboratory Results 08/14/17 11:20 08/14/17 11:20 08/14/17 08/14/17 08/14/17 11:20 11:20 11:20 WBC RBC Hgb Hct MCV MCH MCHC RDW Plt Count MPV Neut % (Auto) Lymph % (Auto) [place] % (Auto) Eos % (Auto) Baso % (Auto) Nucleat RBC Rel Count Absolute Neuts (auto) Absolute Lymphs (auto) Absolute Monos (auto) Absolute Eos (auto) Absolute Basos (auto) Absolute Nucleated RBC Immature Gran % Immature Gran # PT 23.9 SEC H SEC (12.0-15.0) INR 2.12 H (0.83-1.16) VBG Lactic Acid Sodium 121 mEq/L L mEq/L (134-144) Potassium 4.7 mEq/L mEq/L (3.5-5.2) Chloride 92 mEq/L L mEq/L (97-110) Carbon Dioxide 18 mEq/l L mEq/l (22-31) Anion Gap 11 mEq/L mEq/L (8-16) BUN 17 mg/dL mg/dL (7-23) Creatinine 0.7 mg/dL mg/dL (0.6-1.0) Estimated GFR > 60 Glucose 143 mg/dL H mg/dL (70-100) Calcium 8.0 mg/dL L mg/dL (8.5-10.4) Magnesium 1.7 mg/dL mg/dL (1.6-2.3) Troponin I 0.040 ng/mL H ng/mL (0.000-0.034) NT-Pro-B Natriuret Pep 70239 pg/mL H pg/mL (0-450) 08/14/17 08/14/17 11:20 11:20 WBC 7.31 10^3/uL 10^3/uL (3.80-9.50) RBC 4.01 10^6/uL L 10^6/uL (4.18-5.33) Hgb 11.5 g/dL L g/dL (12.6-16.3) Hct 33.0 % L % (38.0-47.0) MCV 82.3 fL fL (81.5-99.8) MCH 28.7 pg pg (27.9-34.1) MCHC 34.8 g/dL g/dL (32.4-36.7) RDW 14.1 % % (11.5-15.2) Plt Count 201 10^3/uL 10^3/uL (150-400) MPV 10.2 fL fL (8.7-11.7) Neut % (Auto) 85.9 % H % (39.3-74.2) Lymph % (Auto) 5.3 % L % (15.0-45.0) [place] % (Auto) 8.6 % % (4.5-13.0) Eos % (Auto) 0.0 % L % (0.6-7.6) Baso % (Auto) 0.1 % L % (0.3-1.7) Nucleat RBC Rel Count 0.0 % % (0.0-0.2) Absolute Neuts (auto) 6.27 10^3/uL 10^3/uL (1.70-6.50) Absolute Lymphs (auto) 0.39 10^3/uL L 10^3/uL (1.00-3.00) Absolute Monos (auto) 0.63 10^3/uL 10^3/uL (0.30-0.80) Absolute Eos (auto) 0.00 10^3/uL L 10^3/uL (0.03-0.40) Absolute Basos (auto) 0.01 10^3/uL L 10^3/uL (0.02-0.10) Absolute Nucleated RBC 0.00 10^3/uL 10^3/uL (0-0.01) Immature Gran % 0.1 % % (0.0-1.1) Immature Gran # 0.01 10^3/uL 10^3/uL (0.00-0.10) PT INR VBG Lactic Acid 2.6 mmol/L H mmol/L (0.7-2.1) Sodium Potassium Chloride Carbon Dioxide Anion Gap BUN Creatinine Estimated GFR Glucose Calcium Magnesium Troponin I NT-Pro-B Natriuret Pep General Time Seen by Provider: 08/14/17 10:27 Initial Vital Signs: Initial Vital Signs Temperature (C) 36.4 C 08/14/17 10:18 Heart Rate 94 08/14/17 10:18 Respiratory Rate 19 08/14/17 10:18 Blood Pressure 145/84 H 08/14/17 10:18 O2 Sat (%) 93 08/14/17 10:18 O2 Delivery Mode Room Air Allergies/Adverse Reactions: No Known Allergies Allergy (Verified 11/30/14 03:06) Home Medications: Medication Instructions Recorded Levothyroxine [Synthroid 50 mcg 50 mcg PO DAILY06 08/29/16 (*)] amLODIPine BESYLATE [Norvasc 5 mg 5 mg PO DAILY PRN 08/29/16 (*)] Atorvastatin Calcium [Lipitor 10 10 mg PO HS 01/09/17 mg (*)] Benazepril HCl [Lotensin (*)] 10 mg PO BID 01/29/17 Calcium Carbonate/Vitamin D3 1 each PO BIDMEAL 03/14/17 [CALCIUM 600 + VIT D TABLET] Docusate Sodium [Colace 100 MG (*)] 200 mg PO BID 03/14/17 Multivitamins [Multivitamin (*)] 1 each PO DAILY 03/14/17 clonIDINE [Catapres (*)] 0.1 mg PO BID PRN 03/14/17 Furosemide [Lasix 20 MG (*)] 20 mg PO DAILY #30 tab 03/15/17 cycloSPORINE 0.05% [Restasis Opht 1 drop EACHEYE BID 07/04/17 Drops(*)] Omeprazole [Prilosec 20 mg] 20 mg PO DAILY 08/14/17 Propylene Glycol/Peg 400 [Systane 1 drop EACHEYE DAILY PRN 08/14/17 Ultra 0.4-0.3% Eye Drp] Warfarin Sodium [Coumadin 3MG (*)] 6 mg PO DAILY16 08/14/17 Departure - Departure Disposition: [facility] Inpatient Acute Clinical Impression: Hyponatremia, Pleural effusion, Elevated troponin Acute exacerbation of congestive heart failure Qualifiers: Congestive heart failure type: unspecified congestive heart failure type Qualified Code(s): I50.9 - Heart failure, unspecified Dyspnea Qualifiers: Dyspnea type: shortness of breath Qualified Code(s): R06.02 - Shortness of breath; R06.00 - Dyspnea, unspecified; R06.01 - Orthopnea Condition: Fair Report Scribed for: Hanna Dailey Report Scribed by: Rona Cuevas Date of Report: 08/14/17 Time of Report: 12:15
[2017-08-14 11:40] LABS: % IMMATURE GRANULYOCYTES 0.1 % (0.0-1.1); ABSOLUTE IMMATURE GRANULOCYTES 0.01 10^3/uL (0.00-0.10); ADD DIFF? NO; ADD MORPH? NO; ADD SCAN? NO; ATYPICAL LYMPHOCYTE FLAG 30 (0-99); FRAGMENT RBC FLAG 0 (0-99); HEMOGLOBIN 11.5 g/dL (12.6-16.3); LEFT SHIFT FLG 0 (0-99); LIPEMIA HEMOLYSIS FLAG 90 (0-99); MEAN CELL HEMOGLOBIN 28.7 pg (27.9-34.1); MEAN CELL HEMOGLOBIN CONCENTR. 34.8 g/dL (32.4-36.7); MEAN CELL VOLUME 82.3 fL (81.5-99.8); MEAN PLATELET VOLUME 10.2 fL (8.7-11.7); PLATELET CLUMPS FLAG 10 (0-99); PLATELET COUNT 201 10^3/uL (150-400); RED BLOOD CELL COUNT 4.01 10^6/uL (4.18-5.33); RED CELL DISTRIBUTION WIDTH 14.1 % (11.5-15.2)
[2017-08-14 11:55] LABS: INR 2.12 (0.83-1.16); PROTIME(PATIENT) 23.9 SEC (12.0-15.0)
[2017-08-14 12:06] LABS: ANION GAP 11 mEq/L (8-16); CARBON DIOXIDE 18 mEq/l (22-31); CHLORIDE 92 mEq/L (97-110); CREATININE 0.7 mg/dL (0.6-1.0); GLOMERULAR FILTRATION RATE > 60; GLUCOSE 143 mg/dL (70-100); POTASSIUM 4.7 mEq/L (3.5-5.2); SODIUM 121 mEq/L (134-144)
[2017-08-14] MEDS ORDERED: FUROSEMIDE 20 MG/2 ML VIAL IVP ONE (12:29)
[2017-08-14] MEDS ORDERED: ONDANSETRON 4 MG/2 ML VIAL IVP PRN (12:51)
[2017-08-14] MEDS ORDERED: ONDANSETRON DISINTEGRATING 4 MG TAB PO PRN (12:51)
[2017-08-14] MEDS ORDERED: ACETAMINOPHEN 325 MG TAB PO PRN (12:51)
--- NOTE | 2017-08-14 14:29 | ECHO ---
[email or web address] [address] [address] Main: [phone] Fax: [email or web address] Echocardiogram Name: KAVON PALOMINO MR#: [id number] Study Date: 08/14/2017 Study Time: 12:21 PM Date of : 1930 Age: 87 year(s) Height: 157.5 cm (62 in.) Weight: 67.13 kg (148 lb.) BSA: 1.68 m2 Gender: Female Examination: Echo Indication: worsening CHF Image Quality: Contrast: Requested by: Hanna Dailey BP: / Heart Rate: Rhythm: Indication: worsening CHF Procedure Staff Installation Supervisor: Katherine Contreras Reading Physician: Madi Lopez Requesting Provider: Conclusions: Moderately to severely reduced systolic function. The ejection fraction is visually estimated to be 35 %. Moderate to severe mitral regurgitation. Mean aortic valve gradient 47. Severe calcific aortic valve stenosis. Moderate to severe tricuspid valve regurgitation. Right ventricular systolic pressure measures 62mmHg. There is a pleural effusion present. Measurements: Chambers Valvular Assessment AV/MV Valvular Assessment TV/PV Normal Normal Normal Name Value Range Name Value Range Name Value Range Ao Akiko (MM): 2.5 cm (2.2 cm-3.7 AV Vmax: 4.09 m/s (1 m/s-1.7 TR Vmax: 3.60 mm/s ( - ) cm) m/s) TR PGmax: 52 mmHg ( - ) IVSd (2D): 1.0 cm (0.6 cm-1.1 AV maxP mmHg ( - ) syst. PAP: 62 mmHg ( - ) cm) AV meanP mmHg ( - ) LVDd (2D): 4.0 cm (3.9 cm-5.3 LVOT Vmax: 0.55 m/s (0.7 m/s-1.1 cm) m/s) LVDs (2D): 3.4 cm (2.1 cm-4 ALYSSIA (Vmax): 0.4 cm2 ( - ) cm) ALYSSIA (VTI): 0.3 cm ( - ) LVPWd (2D): 1.0 cm ( - ) MV E Vmax: 1.20 m/s ( - ) LVOTd 1.9 cm 1.9 cm mm MV A Vmax: 0.40 m/s ( - ) LVEF (MOD2): 24 % (>=55 %) MV E/A: 3.00 ( - ) Visual EF: 35 % MV maxP mmHg ( - ) RVDd(2D): 3.5 cm (1.9 cm-3.8 MV meanP mmHg ( - ) cmmm) MVA (Vmax): 2.4 m/s ( - ) Continued Measurements: Chambers Valvular Assessment AV/MV Valvular Assessment TV/PV Patient: KAVON PALOMINO Study Date: 08/14/2017 Page 1 of 2 12:21 PM Name Value Name Value Name Value LADs Lon.7 cm MV Annulus: 3.0 cm CVP (est.): 10 mmHg LA Area: 25.4 cm2 MV E/E' Septal: 30.20 LA Volume: 93 ml MV E/E' Lateral: 19.30 LA Volume Index: 55.4 ml/m2 MV VTI: 12.50 cm RA Area: 21.0 cm2 MR ERO: 0.340 cm2 MR PISA radius: 8 mm MR Reg. Volume: 55 ml MR Reg. Fraction: 63 % Additional Vessels Name Value Ao Ascendin.4 cm Findings: Left Ventricle: Normal size left ventricle. Mild concentric LV hypertrophy. Moderately to severely reduced systolic function. The ejection fraction is visually estimated to be 35 %. Global hypokinesis. Grade 3 diastolic dysfunction (reversible restrictive LV filling pattern). Right Ventricle: Normal size right ventricle. Normal RV function. Left Atrium: The left atrium is severely dilated. Right Atrium: The right atrium is mildly to moderately dilated. Mitral Valve: Moderate mitral valve leaflet calcification is present. Moderate-severe mitral annular calcification. Moderate to severe mitral regurgitation. Aortic Valve: Severe aortic valve calcification is present. Trivial to mild aortic valve regurgitation. Mean aortic valve gradient 47. Severe calcific aortic valve stenosis. Tricuspid Valve: The tricuspid valve appears normal. Moderate to severe tricuspid valve regurgitation. Right ventricular systolic pressure measures 62mmHg. The pulmonary artery pressure is moderately to severely increased. Pulmonic Valve: The pulmonic valve is normal in appearance. Aorta: Normal size aortic root measuring 2.5 cm. Normal size ascending aorta measuring 3.4 cm. Pericardium: No pericardial effusion. There is a pleural effusion present. (No Signature Object) Patient: KAVON PALOMINO Study Date: 08/14/2017 Page 2 of 2 12:21 PM [id number]
[2017-08-14] MEDS ORDERED: PROPYLENE GLYCOL EACHEYE PRN (14:42)
[2017-08-14] MEDS ORDERED: PEG EACHEYE PRN (14:42)
[2017-08-14] MEDS ORDERED: WARFARIN SODIUM 3 MG TAB PO SCH (16:00)
[2017-08-14] MEDS ORDERED: FUROSEMIDE 20 MG/2 ML VIAL ONE (16:20)
[2017-08-14] MEDS: CALCIUM CARB W/VIT D 500 MG TAB PO SCH (16:22)
--- NOTE | 2017-08-14 18:39 | GHP ---
[f rep st] HISTORY AND PHYSICAL DATE OF ADMISSION: 08/14/2017 CHIEF COMPLAINT: Shortness of breath. An 87-year-old female, with known severe aortic stenosis, mitral regurgitation, history of stroke, pe rmanent atrial fibrillation, who was brought in by her son from [facility] with labored breathing wit h exertion. Yesterday, she had difficulty getting from her chair to the restroom, which is unusual f or her. She is unable to speak much due to the difficulty breathing. He reports her legs being very swollen, and she has gained 17-18 pounds over the last month. She was here at [facility] a m onth ago after a fall and a left arm tear. When I interviewed patient, she was not able to participate much as she was very anxious and had a di fficult time talking due to shortness of breath. REVIEW OF SYSTEMS: Most of my review is obtained from prior records and from the son, as patient is not able to participate. PAST MEDICAL HISTORY: Severe aortic stenosis; mitral regurgitation; history of stroke; history of east cancer, status post bilateral mastectomies; history of colon cancer; atrial fibrillation, on Cou madin; esophageal stenosis; spinal stenosis; hypertension; hypothyroidism. PAST SURGICAL HISTORY: Hysterectomy, bilateral mastectomies. SOCIAL HISTORY: She is , lives at [facility]. She is cared for closely by her son. FAMILY HISTORY: Noncontributory. HOME MEDICATIONS: Systane Ultra eye drops, Prilosec 20 mg daily, docusate, calcium carbonate/vitamin D, benazepril 10 mg twice daily, atorvastatin 10 mg q.h.s., cyclosporin eye drops, clonidine 0.5 mg b.i.d. p.r.n., amlodipine 5 mg p.r.n., Coumadin 6 mg daily, multivitamin, levothyroxine 50 mcg daily, Lasix 20 mg p.o. daily. ALLERGIES: No known drug allergies. PHYSICAL EXAMINATION: VITAL SIGNS: Temperature 36.9, blood pressure 129/90, heart rate is in the 90 s, respirations 15. She is 94% on room air. GENERAL: She is lying in bed, anxious, mildly uncomfor table. HEENT: PERRLA. EOMI. Oropharynx clear. CV: Regular. +3 lower extremity edema. JVD is e levated. LUNGS: Decreased breath sounds at bases. She is having mildly increased work of breathing . She is not talking much due to shortness of breath. ABDOMEN: Soft, nontender, nondistended. Pos itive bowel sounds. : No suprapubic tenderness. MUSCULOSKELETAL: Moving all [address] [place] [address]: She is alert and oriented. She has no focal deficits, but she is not saying much. PSYCH: She is able answer questions but anxious. LABS: WBC 7, hemoglobin 11, hematocrit 33, platelets 201. INR is 2.12. Blood gas is 2.6. Sodium 1 21, potassium 4.7, chloride 92, carbon dioxide 18, BUN 17, creatinine 0.7, glucose 143, calcium 8. T roponin 0.04. BNP is 23,200. Chest x-ray was personally reviewed by me. Pulmonary edema, bilateral pleural effusions that are new . EKG was personally reviewed by me. Normal sinus rhythm, PAC, LVH. Echocardiogram: EF is 35%. Moderate to severe MR, mean aortic valve gradient is 47. Severe calcifi c aortic valve stenosis. Moderate to severe tricuspid valve regurgitation. RVSP is 62 mmHg. There is a pleural effusion present. Prior echocardiogram showed EF of 50%. Diastolic heart failure. Severe stenosis with an AO mean 41 mmHg. ASSESSMENT AND PLAN: 1. Acute decompensated systolic heart failure/aortic stenosis and mitral regurgitation: Ejection fr action shows a significant reduction in ejection fraction from 50% now 35%. She also has increased r ight ventricular systolic pressure. I discussed case with Dr. Lopez, with cardiology, and at this point she is not a candidate for a transcatheter aortic valve replacement or other procedures. She h ad been offered intervention in the past, but declined upon review of prior records. At this point, we will continue gentle diuresis. 2 g sodium, 2 L fluid restriction. Daily weights. Ins and outs. 2. Hypervolemic hyponatremia. Sodium is 121. Will check these q.4. We will check urine electrolyt e. 3. Indeterminate troponin, 0.04. This is likely secondary to severe volume overload. She denies an y chest pain currently. 4. Hypothyroidism, levothyroxine. 5. Atrial fibrillation. She is currently in normal sinus rhythm. INR is therapeutic. Will continu e Coumadin. 6. Goals: I had extensive conversation with her son as far as the poor prognosis, and I emphasized at this point that we should focus on her comfort and quality, which he was in agreement to. He woul d like to talk to a hospice team in the morning. However, he would like to speak to them alone befor e talking to his mother, as she becomes very anxious. I did discuss her core status and she is a DNR . I have consulted Case Management for assistance with this. 7. Deep venous thrombosis prophylaxis, is on Coumadin. DISPOSITION: Patient warrants inpatient admission, given acutely decompensated systolic heart failur e, warranting monitored IV diuresis as well as serial labs. TIME SPENT ON ADMISSION: 75 minutes, reviewing all labs, discussing case with Cardiology and discuss ing goals and treatment plan with the son. /[id number]/MODL
[2017-08-14 19:04] LABS: ANION GAP 11 mEq/L (8-16); CALCIUM 8.4 mg/dL (8.5-10.4); CARBON DIOXIDE 19 mEq/l (22-31); CHLORIDE 91 mEq/L (97-110); CREATININE 0.7 mg/dL (0.6-1.0); GLOMERULAR FILTRATION RATE > 60; GLUCOSE 114 mg/dL (70-100); SODIUM 121 mEq/L (134-144)
[2017-08-14 19:16] LABS: TROPONIN I 0.046 ng/mL (0.000-0.034)
--- NOTE | 2017-08-14 19:25 | PDMN ---
Medical Necessity Medical necessity: C/M review: est. > 2 MN LOS for eval and TX of acute decompensated systolic heart failure, hypervolemic hyponatremia, shortness of breath, requiring planned Hospice eval, ongoing IV diuresis, cardiac monitoring, pulse oximetry, supplemental O2, acute inpt OT, comorbid severe aortic stenosis, mitral regurgitation, hypothyroidism, [permanent atrial fibrillation, poor prognosis, hx stroke, breast cancer S/P bilateral mastectomies, colon cancer, esophageal stenosis, spinal stenosis, hypertension per H/P.
[2017-08-14] MEDS: BENAZEPRIL HCL 10 MG TAB PO SCH (20:09)
[2017-08-14] MEDS: DOCUSATE SODIUM 100 MG CAP PO SCH (20:09)
[2017-08-14] MEDS: cycloSPORINE 0.05% 30 DROPERETTE/BOX EACHEYE SCH (20:13)
[2017-08-14] MEDS ORDERED: ATORVASTATIN CALCIUM 10 MG TAB PO SCH (21:00)
--- NOTE | 2017-08-14 22:34 | GCON ---
[f rep st] CONSULTATION CHIEF COMPLAINT: Shortness of breath. HISTORY OF PRESENT ILLNESS: This is an 87-year-old female with known history of CVA, critical aortic stenosis, who has refused intervention in the past for her valvular heart disease, who is being seen today in the [facility] ER for worsening shortness of breath. According to the zelalemen festus's son, the patient had worsening shortness of breath as well as lower extremity edema over the last 2 weeks. She has been at [facility] since a fall 1 month ago where she sustained a left arm tear an d wrist fractures. The patient currently is slightly lethargic but does indicate feeling short of br eath. ECG shows sinus rhythm, with no acute ST changes. Blood pressure and heart rate are currently stable. The patient did have an echocardiogram done which showed significantly reduced ejection fra ction compared to an echo from 1 month ago with critical aortic stenosis and severe mitral regurgitat ion as well as severe tricuspid regurgitation. The patient is also hyponatremic, had a sodium of 121 . PAST MEDICAL HISTORY: Significant for severe aortic stenosis and mitral regurgitation, history of [place], history of breast cancer, atrial fibrillation, hypothyroidism, history of hypertension. HOME MEDICATIONS: Coumadin. Please see patient's MAR for additional medications. SOCIAL HISTORY: Patient is in a correction facility. No smoking or drinking. FAMILY HISTORY: Noncontributory. REVIEW OF SYSTEMS: Patient currently denies any headache, chest pain, abdominal pain, or lower extre mity pain or back pain but she does indicate having shortness of breath and is somewhat lethargic wit h her responses. PHYSICAL EXAM: VITAL SIGNS: Patient is currently afebrile at 98.6, blood pressure currently 110/70, heart rate of 78, respirations 14, satting 92% on 2 L nasal cannula. HEENT: Pupils equal, round an d reactive to light and accommodation. CARDIOVASCULAR: Regular rate and rhythm. There is a soft 1/ 6 systolic murmur heard best at the right upper sternal border. LUNGS: Crackles bilaterally at the bases. ABDOMEN: Soft, nontender. No guarding. EXTREMITIES: Minimal pitting edema in the lower ex tremities. NEUROLOGICAL: The patient appears to be lethargic but does respond to loud questions. LABORATORY VALUES: Currently show a white blood cell count 7.3, hemoglobin 11.5, hematocrit 33, plat elet count 201. INR of 2.1. Lactic acid last level was 2.6. Sodium is 121, chloride 92, bicarb 18, BUN 17, creatinine 0.7. Troponin 0.04. BNP of 23,000. Chest x-ray shows bilateral pleural effusio ns. ASSESSMENT AND PLAN: Shortness of breath/severe aortic stenosis. At this time, the patient's underl chaparrita valvular heart disease seems to have progressed as her ejection fraction has dropped significant ly from 1 month ago from 55% down to approximately 30% to 35%. She has what appears to be severe-to- critical aortic stenosis as well as severe mitral regurgitation. She has refused any interventions i n the past for her underlying valvular disease as documented by Dr. Holman in the last hospital note. Unfortunately, now that her ejection fraction has dropped, she appears to be in an end-stage process given her significant aortic stenosis. Her prognosis is very poor. Would continue with conservative therapy with IV Lasix for her underlying pulmonary edema. Consider palliative care if patient and anthony quintana are agreeable as she is basically inoperable for her aortic stenosis given her reduced ejection fraction and would not be considered a transcatheter aortic valve replacement candidate either, sinc e her ejection fraction is quite reduced as well as having severe mitral regurgitation. /[id number]/MODL
[2017-08-15 01:15] LABS: ANION GAP 12 mEq/L (8-16); CALCIUM 8.6 mg/dL (8.5-10.4); CARBON DIOXIDE 20 mEq/l (22-31); CHLORIDE 92 mEq/L (97-110); CREATININE 0.7 mg/dL (0.6-1.0); GLOMERULAR FILTRATION RATE > 60; GLUCOSE 121 mg/dL (70-100); POTASSIUM 5.2 mEq/L (3.5-5.2); SODIUM 124 mEq/L (134-144)
[2017-08-15] MEDS ORDERED: FUROSEMIDE 20 MG/2 ML VIAL IVP ONE ×2 (01:38→09:45)
[2017-08-15 07:05] LABS: ANION GAP 8 mEq/L (8-16); CARBON DIOXIDE 20 mEq/l (22-31); CHLORIDE 93 mEq/L (97-110); CREATININE 0.7 mg/dL (0.6-1.0); GLOMERULAR FILTRATION RATE > 60; GLUCOSE 101 mg/dL (70-100); POTASSIUM 4.5 mEq/L (3.5-5.2); SODIUM 121 mEq/L (134-144)
[2017-08-15] MEDS: PANTOPRAZOLE SODIUM 40 MG TAB PO SCH (07:32)
[2017-08-15] MEDS: DOCUSATE SODIUM 100 MG CAP PO SCH ×2 (07:32→20:36)
[2017-08-15] MEDS: MULTIVITAMINS 1 EACH TAB PO SCH (07:32)
[2017-08-15] MEDS: LEVOTHYROXINE 50 MCG TAB PO SCH (07:32)
[2017-08-15] MEDS: BENAZEPRIL HCL 10 MG TAB PO SCH (07:32)
[2017-08-15] MEDS: CALCIUM CARB W/VIT D 500 MG TAB PO SCH ×2 (07:32→20:36)
[2017-08-15] MEDS: cycloSPORINE 0.05% 30 DROPERETTE/BOX EACHEYE SCH ×2 (07:34→23:47)
[2017-08-15] MEDS ORDERED: ENOXAPARIN 30 MG/0.3 ML SYR SC SCH (09:00)
--- NOTE | 2017-08-15 09:42 | SOAPPROG ---
KATIE Progress Note Assessment/Plan: Assessment:1. end stage vhd...no medical options..agree with hospice and comfort care only..discussed at length with son who agrees with care plan Plan:1. comfort care with hospice 08/15/17 09:32 Subjective: pt seen with son who is interpreting as she speaks kosovan...pt ..comfort meris at end stage vhd and hospice service has been called..pt is clearly volume overloaded ..comfort measures only Objective: Vital Signs Temp Pulse Resp BP Pulse Ox 36.4 C 80 20 107/80 97 08/15/17 07:21 08/15/17 07:21 08/15/17 07:21 08/15/17 07:21 08/15/17 07:21 Laboratory Results 08/15/17 06:15 08/14/17 08/15/17 08/16/17 05:59 05:59 05:59 Intake Total 100 Balance 100 PT 23.9 SEC (12.0-15.0) H 08/14/17 11:20 INR 2.12 (0.83-1.16) H 08/14/17 11:20 Physical Exam - Physical Exam Respiratory: rales, wheezing Cardiac/Chest: systolic murmur ICD10 Worksheet Patient Problems: Problems Problem Status Onset Acute exacerbation of congestive heart failure Acute Dyspnea Acute Elevated troponin Acute Hyponatremia Acute Pleural effusion Acute Arm laceration Acute Fall Acute Hematoma of arm Acute Non-STEMI (non-ST elevated myocardial infarction) Acute Wrist fracture, left Acute
--- NOTE | 2017-08-15 13:58 | HOSPPROG ---
Hospitalist Progress Note Assessment/Plan: 87 yo f w severe , newly reduced LVEF acute on chronic systolic heart failure: diuresing seems clinically improved c/w notes from earlier source of global HK = longstanding hold ANITA-I given soft bp's plan of care: no intervention, comfort care dc coumadin AF: dc coumadin code: dnr, comfort care dispo: inpatient Subjective: case d/w dr avitia Objective: Vital Signs Temp Pulse Resp BP Pulse Ox 36.7 C 72 20 99/69 L 98 08/15/17 11:39 08/15/17 11:39 08/15/17 11:39 08/15/17 11:39 08/15/17 11:39 Laboratory Results 08/15/17 06:15 08/14/17 08/15/17 08/16/17 05:59 05:59 05:59 Intake Total 100 Balance 100 PT 23.9 SEC (12.0-15.0) H 08/14/17 11:20 INR 2.12 (0.83-1.16) H 08/14/17 11:20 - Physical Exam Constitutional: no apparent distress, appears nourished Eyes: PERRL, anicteric sclera Ears, Nose, Mouth, Throat: moist mucous membranes, hearing normal Cardiovascular: regular rate and rhythym, systolic murmur Respiratory: no respiratory distress, No no rales or rhonchi Gastrointestinal: normoactive bowel sounds, soft, non-tender abdomen Genitourinary: No davis in urethra Skin: warm, normal color Musculoskeletal: No full muscle strength Neurologic: AAOx3, sensation intact bilaterally Psychiatric: interacting appropriately ICD10 Worksheet Patient Problems: Problems Problem Status Onset Acute exacerbation of congestive heart failure Acute Dyspnea Acute Elevated troponin Acute Hyponatremia Acute Pleural effusion Acute Arm laceration Acute Fall Acute Hematoma of arm Acute Non-STEMI (non-ST elevated myocardial infarction) Acute Wrist fracture, left Acute
[2017-08-15] MEDS: FUROSEMIDE 20 MG/2 ML VIAL IVP SCH (17:43)
--- NOTE | 2017-08-15 17:49 | ASMTCMCOM ---
CM Note CM Note Notes: Reviewed chart, spoke w/ JAYESH Barnes regarding discharge plan, pt's progress. Call received from JAYESH Barnes this morning, pt imminently dying and hospice consult ordered. Call placed to [facility] for eval; spoke w/ Jeanine. Per Jeanine, [facility] can evaluate pt, but if the pt doesn't have much time left to transfer to in care [place], hospice care would need to be provided in-hospital. Call placed to cas Ferreira RN on 2W. Per Hanna, pt does not need inpt hospice at this time. Update provided to Jeanine. Spoke w/ Dr. Chou - per Dr. Chou, pt not imminently dying at this time; hospice consult re-ordered. Call placed to [facility]; spoke w/ Jeanine. New referral sent via [employer]; confirmed receipt. Per Jeanine, unable to see pt today, but can eval Thursday08/16/17 in the morning. [facility] to call CM to arrange a time on Thursday. CM will cont to follow. Date Signed: 08/15/2017 05:49 PM Electronically Signed By:Antonette Le RN
[2017-08-15] MEDS ORDERED: morphINE 10 MG/0.5 ML UDSYR PO PRN (18:57)
[2017-08-15] MEDS ORDERED: SCOPOLAMINE HYDROBROMIDE 1 MG/3 DAYS PATCH TD SCH (19:45)
[2017-08-15] MEDS: LORazepam 2 MG/ML INJ IVP PRN (20:12)
[2017-08-16] MEDS: LORazepam 2 MG/ML INJ IVP PRN ×2 (04:50→14:25)
[2017-08-16] MEDS: LEVOTHYROXINE 50 MCG TAB PO SCH (05:46)
[2017-08-16] MEDS: cycloSPORINE 0.05% 30 DROPERETTE/BOX EACHEYE SCH ×2 (07:13→22:11)
[2017-08-16] MEDS: DOCUSATE SODIUM 100 MG CAP PO SCH ×2 (07:13→22:11)
[2017-08-16] MEDS: MULTIVITAMINS 1 EACH TAB PO SCH (07:13)
[2017-08-16] MEDS: CALCIUM CARB W/VIT D 500 MG TAB PO SCH (07:13)
[2017-08-16] MEDS: PANTOPRAZOLE SODIUM 40 MG TAB PO SCH (07:14)
[2017-08-16] MEDS: FUROSEMIDE 20 MG/2 ML VIAL IVP SCH (07:42)
[2017-08-16 09:32] VITALS: BP 102/69; TEMP 96.3
--- NOTE | 2017-08-16 09:35 | SOAPPROG ---
KATIE Progress Note Assessment/Plan: Assessment:1. end stage vhd...no medical options..agree with hospice and comfort care only..discussed at length with son who agrees with care plan...[facility] to be here today to assume care options Plan:1. comfort care with hospice 08/15/17 09:32 08/16/17 09:35 Subjective: rested last night after sedation...awake and alert this AM...spoke to son and [facility] should be here by noon today... Objective: Vital Signs Temp Pulse Resp BP Pulse Ox 35.7 C L 79 16 102/69 94 08/16/17 09:29 08/16/17 09:29 08/16/17 09:29 08/16/17 09:29 08/16/17 09:29 Laboratory Results 08/15/17 06:15 08/15/17 08/16/17 08/17/17 05:59 05:59 05:59 Intake Total 100 1872 Balance 100 1872 PT 23.9 SEC (12.0-15.0) H 08/14/17 11:20 INR 2.12 (0.83-1.16) H 08/14/17 11:20 ICD10 Worksheet Patient Problems: Problems Problem Status Onset Acute exacerbation of congestive heart failure Acute Dyspnea Acute Elevated troponin Acute Hyponatremia Acute Pleural effusion Acute Arm laceration Acute Fall Acute Hematoma of arm Acute Non-STEMI (non-ST elevated myocardial infarction) Acute Wrist fracture, left Acute
--- NOTE | 2017-08-16 14:38 | HOSPPROG ---
Hospitalist Progress Note Assessment/Plan: 87 yo f w severe , newly reduced LVEF acute on chronic systolic heart failure: endstage hospice care plan of care: no intervention, comfort care comfort meds only including eye drops AF: dc coumadin code: dnr, comfort care dispo: inpatient dying Subjective: case d/w dr avitia Objective: Vital Signs Temp Pulse Resp BP Pulse Ox 35.7 C L 79 16 102/69 94 08/16/17 09:29 08/16/17 09:29 08/16/17 09:29 08/16/17 09:29 08/16/17 09:29 Laboratory Results 08/15/17 06:15 08/15/17 08/16/17 08/17/17 05:59 05:59 05:59 Intake Total 100 1872 Balance 100 1872 PT 23.9 SEC (12.0-15.0) H 08/14/17 11:20 INR 2.12 (0.83-1.16) H 08/14/17 11:20 - Physical Exam Constitutional: no apparent distress, appears nourished Eyes: PERRL, anicteric sclera Ears, Nose, Mouth, Throat: moist mucous membranes, hearing normal Cardiovascular: regular rate and rhythym, systolic murmur, No tachycardia Respiratory: no respiratory distress, no rales or rhonchi Gastrointestinal: normoactive bowel sounds, soft, non-tender abdomen Genitourinary: No davis in urethra Skin: warm, normal color Musculoskeletal: full muscle strength Neurologic: No AAOx3 Psychiatric: No interacting appropriately ICD10 Worksheet Patient Problems: Problems Problem Status Onset Acute exacerbation of congestive heart failure Acute Dyspnea Acute Elevated troponin Acute Hyponatremia Acute Pleural effusion Acute Arm laceration Acute Fall Acute Hematoma of arm Acute Non-STEMI (non-ST elevated myocardial infarction) Acute Wrist fracture, left Acute
--- NOTE | 2017-08-16 16:56 | ASMTCMCOM ---
CM Note CM Note Notes: Call received from Jeanine w/ [facility]; per Betsy Solorzano RN w/ [facility] to see pt at 1200 today. Met w/ pt's son Naren ("Kai") to discuss Hospice visit and his wishes. Per Kai, he "would prefer for his mother stay here in the hospital to pass." Discussed the benefits of [facility]'s inpt care center and hospice nursing. Also discussed all options available - staying in hospital vs hospice inpt care center vs moving pt to her new assisted living apartment w/ hospice vs taking pt home to Don's w/ hospice vs in-hospital hospice. Don willing to meet w/ Betsy to discuss further. Spoke w/ Dr. Grimes. Dr. Grimes feels pt has less than 72 hrs and would benefit from staying in hospital. Betsy met w/ son at 1200; all options reinterated and reviewed. Per Betsy, pt accepted at [facility]. Call placed to Carole Escalera (Director of ) to discuss GIP (in-hospital hospice option). Met w/ Don again to discuss his impression of the hospice meeting and wishes. Don very dissatisfied w/ meeting, felt the hospice nurse had an agenda and didn't take time to fully listen to him. Kai wants his mother to stay at hospital w/ comfort measures from our staff only, no hospice at this time. Update provided to JAYESH Barnes, Jeanine at [facility]. Update provided to Dr. Chou. Dr. Chou comfortable w/ pt staying another day, as long as her condition does not improve. Pt's son provided feedback that he was very dissatisfied with care at [facility] - he strongly feels the pt "would not be where she is today, if she hadn't gone there." CM to pass feedback along to Carole; will cont to follow. Date Signed: 08/16/2017 04:55 PM Electronically Signed By:Antonette Le RN
[2017-08-17] MEDS: LEVOTHYROXINE 50 MCG TAB PO SCH (04:18)
[2017-08-17] MEDS: DOCUSATE SODIUM 100 MG CAP PO SCH ×2 (08:00→21:16)
[2017-08-17] MEDS: cycloSPORINE 0.05% 30 DROPERETTE/BOX EACHEYE SCH ×2 (08:00→21:17)
[2017-08-17 09:15] VITALS: RESP 20
--- NOTE | 2017-08-17 09:42 | HOSPPROG ---
Hospitalist Progress Note Assessment/Plan: 87 yo f w severe , newly reduced LVEF acute on chronic systolic heart failure: endstage hospice care plan of care: no intervention, comfort care comfort meds only including eye drops I suspect she has days left to live based on stable vital signs and that she is eating today CM looking into inpt hospice AF: dc coumadin code: dnr, comfort care dispo: inpatient Subjective: on RA Objective: Vital Signs Temp Pulse Resp BP Pulse Ox 35.7 C L 95 20 102/69 90 L 08/16/17 09:29 08/17/17 09:14 08/17/17 09:14 08/16/17 09:29 08/17/17 09:14 Laboratory Results 08/15/17 06:15 08/16/17 08/17/17 08/18/17 05:59 05:59 05:59 Intake Total 1872 120 Balance 1872 120 PT 23.9 SEC (12.0-15.0) H 08/14/17 11:20 INR 2.12 (0.83-1.16) H 08/14/17 11:20 - Physical Exam Constitutional: no apparent distress Eyes: PERRL, anicteric sclera Ears, Nose, Mouth, Throat: moist mucous membranes, hearing normal Cardiovascular: regular rate and rhythym, systolic murmur, JVD Respiratory: no respiratory distress, expiratory wheeze, inspiratory crackles, No no rales or rhonchi Genitourinary: no bladder fullness, No davis in urethra Skin: warm, normal color Musculoskeletal: full muscle strength, no muscle tenderness Neurologic: sensation intact bilaterally, No AAOx3 Psychiatric: No interacting appropriately Lymph, Heme, Immunologic: no cervical LAD ICD10 Worksheet Patient Problems: Problems Problem Status Onset Acute exacerbation of congestive heart failure Acute Dyspnea Acute Elevated troponin Acute Hyponatremia Acute Pleural effusion Acute Arm laceration Acute Fall Acute Hematoma of arm Acute Non-STEMI (non-ST elevated myocardial infarction) Acute Wrist fracture, left Acute
--- NOTE | 2017-08-17 16:37 | ASMTCMCOM ---
CM Note CM Note Notes: Case Management Note Met w/ son Naren and Raymond Susan from [facility]. After lengthy discussion, son chose to have mom d/c to [facility] with [facility] to follow. [facility] to have all supplies delivered to [facility]. Faxed records to [facility], spoke w/Stephanie on the phone. [facility] elevator is not working today. Arranged transport through [facility] and alerted [facility] about possible need for need for stairs. [facility] agreed to transport pt via stretcher. Arranged for 0900 transport Thursday. Alerted MD via text of d/c plans, confirmed in person. Case Management d/c poc: Planning for a 9 am d/c tomorrow. Pt to d/c to [facility]. Date Signed: 08/17/2017 04:36 PM Electronically Signed By:Karishma Zapata RN
[2017-08-17 17:05] VITALS: PULSE 97; O2SAT 94
[2017-08-17] MEDS: morphINE 10 MG/0.5 ML UDSYR PO PRN ×2 (18:18→19:12)
[2017-08-18] MEDS: LEVOTHYROXINE 50 MCG TAB PO SCH (06:19)
--- NOTE | 2017-08-18 09:25 | PDIAF ---
- Diagnosis Diagnosis: critical Code Status: Do Not Resuscitate - Medication Management Discharge Medications: Medications to Continue on Transfer Levothyroxine [Synthroid 50 mcg (*)] 50 mcg PO DAILY06 08/29/16 [Last Taken ] Docusate Sodium [Colace 100 MG (*)] 200 mg PO BID 03/14/17 [Last Taken 08/14/17] Multivitamins [Multivitamin (*)] 1 each PO DAILY 03/14/17 [Last Taken Unknown] clonIDINE [Catapres (*)] 0.1 mg PO BID PRN 03/14/17 [Last Taken Unknown] cycloSPORINE 0.05% [Restasis Opht Drops(*)] 1 drop EACHEYE BID 07/04/17 [Last Taken 08/13/17 21:00] Omeprazole [Prilosec 20 mg] 20 mg PO DAILY 08/14/17 [Last Taken 08/14/17] Propylene Glycol/Peg 400 [Systane Ultra 0.4-0.3% Eye Drp] 1 drop EACHEYE DAILY PRN 08/14/17 [Last Taken Unknown] LORazepam [Ativan inj 2 mg/ml (*)] 1 mg IVP Q1 PRN inj 08/18/17 [Last Taken Unknown] Discharge Medications: Refer to the Discharge Home Medication list for PRN reason. - Orders Services needed: Registered Nurse, Certified Director Funds Development, Master Insurance Underwriter Sales Isolation Type: None - Follow Up Care Current Providers and Referrals: Verona Perez MD [Primary Care Provider] - As per Instructions
--- NOTE | 2017-08-18 09:27 | HOSPPROG ---
Hospitalist Progress Note Assessment/Plan: 87 yo f w severe , newly reduced LVEF acute on chronic systolic heart failure: endstage hospice care plan of care: no intervention, comfort care comfort meds only including eye drops I suspect she has days left to live based on stable vital signs and that she is eating today CM looking into inpt hospice AF: dc coumadin code: dnr, comfort care dispo: to [facility] today > 30 minutes Subjective: has bed at [facility] Objective: Vital Signs Temp Pulse Resp BP Pulse Ox 35.7 C L 97 20 102/69 94 08/16/17 09:29 08/17/17 17:05 08/17/17 17:05 08/16/17 09:29 08/17/17 17:05 Laboratory Results 08/15/17 06:15 08/17/17 08/18/17 08/19/17 05:59 05:59 05:59 Intake Total 1120 Balance 1120 PT 23.9 SEC (12.0-15.0) H 08/14/17 11:20 INR 2.12 (0.83-1.16) H 08/14/17 11:20 - Physical Exam Constitutional: no apparent distress Eyes: PERRL Ears, Nose, Mouth, Throat: moist mucous membranes Cardiovascular: regular rate and rhythym, systolic murmur Respiratory: expiratory wheeze, inspiratory crackles Gastrointestinal: soft, non-tender abdomen Genitourinary: No davis in urethra Skin: warm Neurologic: AAOx3 ICD10 Worksheet Patient Problems: Problems Problem Status Onset Acute exacerbation of congestive heart failure Acute Dyspnea Acute Elevated troponin Acute Hyponatremia Acute Pleural effusion Acute Arm laceration Acute Fall Acute Hematoma of arm Acute Non-STEMI (non-ST elevated myocardial infarction) Acute Wrist fracture, left Acute
[2017-08-18] MEDS: morphINE 10 MG/0.5 ML UDSYR PO PRN (09:28)
--- NOTE | 2017-08-18 09:49 | ASDISCHSUM ---
Discharge Information Plan Status:Hospice-SNF Medically Cleared to Leave:08/17/2017 Discharge Date:08/18/2017 09:43 AM D/C Disposition:[facility] Facility ADT D/C Disposition:[facility] Facility Projected Discharge Date:08/16/2017 11:00 AM Transportation at D/C:ALS/BLS Discharge Delay Reason: Follow-Up Date:08/16/2017 11:00 AM Discharge Slot: Final Diagnosis: Placement Information Referral Type:*Hospice Referral ID:[id number] Provider Name:Bobbi [place] ([facility]) Address 1:[address] [place] [address] Address 2:[address] City:[place] Selection Factors: State:[place] Referral Type:*Residential/SNF Referral ID:[id number] Provider Name:[facility] Address 1:[address] Address 2: City:[place] Selection Factors: State:[place] Patient Contact Information Contact Name:CHRIS Relationship:Son Address:[address] Work Phone: City:[place] Alternate Phone: State/Zip Code:[place] [address] Email: Financial Information Financial Class: Primary Plan Desc:MEDICARE INPATIENT Primary Plan Number:[id number] Secondary Plan Desc:[facility] Secondary Plan Number:[id number] Assessment Information [facility] CM Progress Note CM Note CM Note Notes: Reviewed chart, spoke w/ JAYESH Barnes regarding discharge plan, pt's progress. Call received from JAYESH Barnes this morning, pt imminently dying and hospice consult ordered. Call placed to [facility] for eval; spoke w/ Jeanine. Per Jeanine, [facility] can evaluate pt, but if the pt doesn't have much time left to transfer to [facility], hospice care would need to be provided in-hospital. Call placed to Hanna, electrical discharge machine operator on 2W. Per Hanna, pt does not need inpt hospice at this time. Update provided to Jeanine. Spoke w/ Dr. Chou - per Dr. Chou, pt not imminently dying at this time; hospice consult re-ordered. Call placed to [facility]; spoke w/ Jeanine. New referral sent via [employer]; confirmed receipt. Per Jeanine, unable to see pt today, but can eval Thursday08/16/17 in the morning. [facility] to call CM to arrange a time on Thursday. CM will cont to follow. Date Signed: 08/15/2017 05:49 PM Electronically Signed By:Antonette Le RN [facility] [place] Progress Note CM Note CM Note Notes: Call received from Jeanine w/ [facility]; per Betsy Solorzano RN w/ [facility] to see pt at 1200 today. Met w/ pt's son Naren ("Kai") to discuss Hospice visit and his wishes. Per Kai, he "would prefer for his mother stay here in the hospital to pass." Discussed the benefits of [facility] inpt care center and hospice nursing. Also discussed all options available - staying in hospital vs hospice inpt care center vs moving pt to her new assisted living apartment w/ hospice vs taking pt home to [facility] w/ hospice vs in-hospital hospice. Kai willing to meet w/ Betsy to discuss further. Spoke w/ Dr. Grimes. Dr. Grimes feels pt has less than 72 hrs and would benefit from staying in hospital. Betsy met w/ son at 1200; all options reinterated and reviewed. Per Betsy, pt accepted at care center. Call placed to Carole Escalera (Director of ) to discuss GIP (in-hospital hospice option). Met w/ Kai again to discuss his impression of the hospice meeting and wishes. Kai very dissatisfied w/ meeting, felt the hospice nurse had an agenda and didn't take time to fully listen to him. Don wants his mother to stay at hospital w/ comfort measures from our staff only, no hospice at this time. Update provided to JAYESH Barnes, Jeanine at [facility]. Update provided to Dr. Chou. Dr. Chou comfortable w/ pt staying another day, as long as her condition does not improve. Pt's son provided feedback that he was very dissatisfied with care at [facility] - he strongly feels the pt "would not be where she is today, if she hadn't gone there." CM to pass feedback along to [facility]; will cont to follow. Date Signed: 08/16/2017 04:55 PM Electronically Signed By:Antonette Le RN [facility] CM Progress Note CM Note CM Note Notes: Case Management Note Met w/ son Naren and Raymond Davis from [facility]. After lengthy discussion, son chose to have mom d/c to [facility] with [facility] to follow. [facility] to have all supplies delivered to [facility]. Faxed records to [facility], spoke w/Stephanie on the phone. [facility] elevator is not working today. Arranged transport through [facility] and alerted [facility] about possible need for need for stairs. [facility] agreed to transport pt via stretcher. Arranged for 0900 transport Thursday. Alerted MD via text of d/c plans, confirmed in person. Case Management d/c poc: Planning for a 9 am d/c tomorrow. Pt to d/c to [facility]. Date Signed: 08/17/2017 04:36 PM Electronically Signed By:Karishma Zapata RN Case Management Discharge Plan Note Case Management Discharge Discharge Order Complete? Answers: Yes Patient to Obtain Answers: Other Notes: [facility] Medications Transportation Arranged Answers: Other Notes: [facility] stretcher transport Case Management Transport Answers: Yes Form Complete Faxed Final Orders Answers: Yes Agency/Facility Transfer Answers: Yes Report Printed & Faxed to Receiving Agency Family Notified Answers: Yes Notes: In room Discharge Comments Notes: Coordinated transfer of pt to [facility] via [facility] stretcher d/t pt deconditioned state. Alerted Raymond at [facility] of transfer, all supplies are at [facility]. Spoke with son Naren, declined social work support, states he has been through hospice programs with father and both in laws. Faxed all documents to [facility] and [facility]. Date Signed: 08/18/2017 09:29 AM Electronically Signed By:Karishma Zapata RN Intervention Information
--- NOTE | 2017-08-18 10:35 | GDS ---
[f rep st] DISCHARGE SUMMARY DISCHARGE DIAGNOSES: 1. Critical aortic stenosis with pulmonary edema. 2. History of stroke. 3. Atrial fibrillation. 4. New decreased systolic function. 5. Zerxczln-xd-ptcyvo mitral regurgitation. HOSPITAL COURSE: The patient presented with increased weight gain, shortness of breath and edema. E chocardiogram revealed decrement in her LVEF and mitral regurgitation in the setting of severe aortic stenosis. She was seen by Dr. Madi Lopez, felt she was not a candidate for TAVR. The patient then opted for hospice care. She is transferred to [facility] today. /[id number]/MODL
[2017-08-18] MEDS ORDERED: PATCH REMOVAL 1 EA PATCH TD SCH (19:43)
== END 2017-08-18 09:43 | DRG 293 ==
LOC: F2W 15:39
PROVIDERS: ADMIT Internal Medicine; ATTEND Internal Medicine
DX: I11.0 Hypertensive heart disease with heart failure (principal); I50.23 Acute on chronic systolic (congestive) heart failure; I08.0 Rheumatic disorders of both mitral and aortic valves; I48.91 Unspecified atrial fibrillation; E03.9 Hypothyroidism, unspecified; Z85.038 Personal history of other malignant neoplasm of large intestine; Z85.3 Personal history of malignant neoplasm of breast; Z86.73 Personal history of transient ischemic attack (TIA), and cerebral infarction without residual deficits; Z79.01 Long term (current) use of anticoagulants; Z66 Do not resuscitate; Z51.5 Encounter for palliative care
CPT/HCPCS: J1940; J2060